=== PATIENT | female | born 1990 | race Caucasian/White ===

== ENCOUNTER 2020-10-08 10:47 | Outpatient (REF) | payer OTHER, SELFPAY | END 2020-10-08 10:48 | disposition home or self-care (01) | LOC: HO.LAB 10:47 | PROVIDERS: PCP Internal Medicine; Visit Provider Internal Medicine | DX: Z20.828 Contact with and (suspected) exposure to other viral communicable diseases (principal) | CPT/HCPCS: C9803; U0003 ==

== ENCOUNTER 2020-12-23 16:46 | Outpatient (REF) | payer OTHER, SELFPAY ==
[2020-12-23 17:41] LABS: Glucose Urine UA NEG (NEG); Leukocyte Esterase Urine TRACE (NEG); Nitrite Urine NEG (NEG); Specific Gravity - Urine >= 1.030 (1.005-1.025); Urine Blood NEG (NEG); Urine Ketones 5 MG/DL (NEG); Urine Protein NEG (NEG-TRACE)
[2020-12-23 17:45] LABS: Appearance Urine CLEAR; Color Urine YELLOW
[2020-12-23 17:55] LABS: Bacteria Urine 1+ /LPF; RBC Urine 0 /HPF (0); Squamous Epithelial Cell Urine 3+ /LPF
== END 2020-12-23 16:47 | disposition home or self-care (01) ==
LOC: HO.LAB 16:46
PROVIDERS: PCP Internal Medicine; Visit Provider Internal Medicine
DX: N39.0 Urinary tract infection, site not specified (principal)
CPT/HCPCS: 81001

== ENCOUNTER 2021-10-16 20:07 | Emergency (ER) | payer OTHER, SELFPAY ==
[2021-10-16 21:26] VITALS: BP 130/88; PULSE 109; RESP 16; TEMP 36.6; O2SAT 97; BMI 32.3
--- NOTE | 2021-10-16 23:48 | ECG_ITS ---
Test Reason : CP Blood Pressure : / mmHG Vent. Rate : 086 BPM Atrial Rate : 086 BPM P-R Int : 120 ms QRS Dur : 090 ms QT Int : 368 ms P-R-T Axes : 060 034 050 degrees QTc Int : 440 ms Normal sinus rhythm Normal ECG When compared with ECG of 09-OCT-2016 21:51, No significant change was found Referred By: Edna Blair Electronically Signed By:CECILIA FOUNTAIN MD
--- NOTE | 2021-10-17 00:06 | PC.NURSE ---
This RN called poison control to report medication overdose. PT reported taking an additional dose of 300 mg Bupropion this evening around 1900 on top of her normal 300 mg dose at 1200. PT reported nausea, lethargy, and confusion. Poison control advised to perform EKG, draw labs for CMP and mag, and monitor for 12 hours. ED provider informed of directives from poison control.
[2021-10-17] MEDS: Ondansetron ODT 4 MG TAB.RAPDIS TRANSLINGU (00:11)
[2021-10-17 00:27] LABS: Basophils Percent Auto 0.3 % (0-2); Eosinophils Absolute Auto 0.2 X10*3/uL (0.0-0.4); Eosinophils Percent Auto 2.5 % (0-4); Hematocrit 42.7 % (37.0-47.0); Hemoglobin 14.7 g/dl (12.0-16.0); Imm Gran Abs Auto 0.01 X10*3/uL (0.00-0.03); Imm Gran Pct Auto 0.2 % (0.0-0.4); Lymphocytes Absolute Auto 1.7 X10*3/uL (1.2-4.9); Lymphocytes Percent Auto 27.9 % (20-40); MANUAL DIFF FLAG NO; Mean Corpuscular HGB Conc 34.4 g/dl (31.0-35.0); Mean Corpuscular Hemoglobin 30.5 pg (27.0-33.0); Mean Corpuscular Volume 88.6 fL (80.0-98.0); Mean Platelet Volume 9.5 fL (9.4-12.3); Monocytes Absolute Auto 0.4 X10*3/uL (0.1-1.2); Monocytes Percent Auto 7.1 % (2-11); Neutrophils Absolute Auto 3.8 x10*3/uL (2.0-8.3); Platelet Count 319 X10*3/uL (160-400); Red Blood Count 4.82 X10*6/uL (4.20-5.50); Red Cell Distribution Width 12.3 % (11.0-16.0); White Blood Count 6.1 X10*3/uL (4.8-10.8)
--- NOTE | 2021-10-17 00:36 | ED.GENADULT ---
HPI - General Adult General Chief complaint: General Medical <Edna Blair NP - Last Filed: 10/17/21 01:20> Stated complaint: thinks she took extra of wellubrutin <Edna Blair NP - Last Filed: 10/17/21 01:20> Time Seen by Provider: 10/16/21 22:48 <Edna Blair NP - Last Filed: 10/17/21 01:20> Source: patient <Edna Blair NP - Last Filed: 10/17/21 01:20> Mode of arrival: ambulatory <Edna Blair NP - Last Filed: 10/17/21 01:20> Limitations: no limitations <Edna Blair NP - Last Filed: 10/17/21 01:20> History of Present Illness HPI narrative: 31-year-old female with a past medical history of anxiety and depression here with reports of taking extra doses of her Wellbutrin accidentally today. Patient normally takes 150 mg of Wellbutrin XL twice a day. At 19:00 she accidentally took an additional 2 doses for a total of 600 mg of Wellbutrin XL today. After this she started to feel nervous. She vomited 3-4 times and felt dizzy. She called poison control and they were referred her into the emergency department. No SI/HI <Edna Blair NP - Last Filed: 10/17/21 01:20> Related Data Home medications: Home Medications Medication Instructions Recorded Confirmed bupropion HCl 150 mg tablet,12 hr 150 mg PO BID 10/12/21 10/12/21 sustained-release prazosin 1 mg capsule 1 mg PO BID 10/12/21 10/12/21 trazodone 50 mg tablet 50 mg PO BEDTIME 10/12/21 10/12/21 Previous Rx's Medication Instructions Recorded sertraline 50 mg tablet (Zoloft) 50 mg PO DAILY #60 tab 05/05/21 clonazepam 0.5 mg tablet 0.5 mg PO TID #90 tab 06/12/21 ibuprofen 400 mg tablet 400 mg PO Q6H #60 tab 06/12/21 naproxen 500 mg tablet 500 mg PO BID #60 tab 06/13/21 carbamide peroxide 6.5 % ear drops 5 drp OTIC (EAR) RIGHT DAILY 4 10/12/21 (Debrox) Days #15 ml clindamycin HCl 300 mg capsule 300 mg PO BID 7 Days #14 cap 10/12/21 <AMANDA Lorenzo Last Filed: 10/17/21 01:20> Allergies/adverse reactions: Allergies Allergy/AdvReac Type Severity Reaction Status Date / Time No Known Allergies Allergy Verified 10/12/21 13:08 <Edna Blair NP - Last Filed: 10/17/21 01:20> Review of Systems Review of Systems: Yes all other systems are reviewed and are negative <AMANDA Lorenzo Last Filed: 10/17/21 01:20> Constitutional: Constitutional: Reports no additional constitutional complaints, Denies body ache(s), Denies chills, Denies fever(s), Denies headache(s) and Denies weakness <AMANDA Lorenzo Last Filed: 10/17/21 01:20> Eyes: Eyes: Reports no additional eye complaints and Denies change in vision <AMANDA Lorenzo Last Filed: 10/17/21 01:20> ENT: Reports system reviewed and no additional complaints, except as documented, Reports dizziness, Denies headache(s), Denies nasal congestion, Denies nasal discharge and Denies neck pain <AMANDA Lorenzo Last Filed: 10/17/21 01:20> Cardiovascular: Cardiovascular: Reports no additional cardiovascular complaints, Denies chest pain, Denies leg edema and Denies dyspnea <AMANDA Lorenzo Last Filed: 10/17/21 01:20> Respiratory: Respiratory: Reports no additional respiratory complaints, Denies cough and Denies dyspnea <AMANDA Lorenzo Last Filed: 10/17/21 01:20> Gastrointestinal: Gastrointestinal: Reports no additional gastrointestinal complaints, Denies abdominal pain, Denies diarrhea, Reports nausea and Reports vomiting <AMANDA Lorenzo Last Filed: 10/17/21 01:20> Genitourinary: Genitourinary: Reports no additional female genitourinary complaints and Denies urinary incontinence <Edna Blair NP - Last Filed: 10/17/21 01:20> Musculoskeletal: Musculoskeletal: Reports no additional musculoskeletal complaints, Denies back pain, Denies arthralgias, Denies joint swelling, Denies neck pain, Denies numbness and Denies tingling <Edna Blair NP - Last Filed: 10/17/21 01:20> Integumentary/Breasts: Skin/Breast: Reports system reviewed and no additional complaints, except as docu and Denies rash <Edna Blair NP - Last Filed: 10/17/21 01:20> Neurologic: Reports system reviewed and no additional complaints, except as documented, Denies Abnormal speech present, Reports dizziness, Denies headache(s), Denies numbness, Denies tingling and Denies weakness <Edna Blair NP - Last Filed: 10/17/21 01:20> PMFSH Past Medical History Attestation statement: The following information was validated with the patient. <Edna Blair NP - Last Filed: 10/17/21 01:20> Source: old records reviewed and nursing notes reviewed <Edna Blair NP - Last Filed: 10/17/21 01:20> Medical History: Medical History Depression Obesity Panic disorder <Edna Blair NP - Last Filed: 10/17/21 01:20> Surgical History: Surgical History History of lumpectomy <Edna Blair NP - Last Filed: 10/17/21 01:20> Family History Family History: Family History Mother No problems noted. Father Cancer <Edna Blair NP - Last Filed: 10/17/21 01:20> Social History Social History: Social History Housing: Apartment Alcohol intake: never Patient Tobacco Use Status: Never used Tobacco e-Cigarette/Vaping Use: Never Used Second Hand Smoke Exposure: No Advance Directives: No Patient : No service: No Current occupational status: employed <Edna Blair NP - Last Filed: 10/17/21 01:20> Physical Exam Vital Signs: Vital Signs: Last Vital Signs Temp 97.9 F 10/16/21 21:26 Pulse 109 H 10/16/21 21:26 Resp 16 10/16/21 21:26 BP 130/88 10/16/21 21:26 Pulse Ox 97 10/16/21 21:26 BMI result Body Mass Index 32.3 <Edna Blair NP - Last Filed: 10/17/21 01:20> Vital Signs: Last Vital Signs Temp 97.9 F 10/16/21 21:26 Pulse 109 H 10/16/21 21:26 Resp 16 10/16/21 21:26 BP 130/88 10/16/21 21:26 Pulse Ox 97 10/16/21 21:26 BMI result Body Mass Index 32.3 <Delbert Stacy MD - Last Filed: 10/17/21 00:45> Const: General: cooperative, healthy appearing, comfortable and no acute distress <Edna Blair NP - Last Filed: 10/17/21 01:20> Orientation/consciousness: patient oriented x3 <Edna Blair NP - Last Filed: 10/17/21 01:20> Limitations: no limitations <Edna Blair NP - Last Filed: 10/17/21 01:20> HENMT: Head: Yes normal to inspection <Edna Blair NP - Last Filed: 10/17/21 01:20> Ears: hearing grossly normal bilaterally <Edna Blair NP - Last Filed: 10/17/21 01:20> General nose exam: Normal external nose present <Edna Blair NP - Last Filed: 10/17/21 01:20> Face and sinus: Yes normal facial exam <Edna Blair NP - Last Filed: 10/17/21 01:20> Mouth: Normal oral and palatal mucosa present <Edna Blair NP - Last Filed: 10/17/21 01:20> Throat: Yes posterior oropharynx normal <Edna Blair NP - Last Filed: 10/17/21 01:20> Eyes: General: appearance normal, both eyes and all related structures <Edna Blair NP - Last Filed: 10/17/21 01:20> Pupils: Equal, round and reactive pupils present <Edna Blair NP - Last Filed: 10/17/21 01:20> Neck: Neck: Yes normal visual inspection <Edna Blair NP - Last Filed: 10/17/21 01:20> Chest: Chest palpation & inspection: normal inspection of the chest <Edna Blair NP - Last Filed: 10/17/21 01:20> Resp: Effort & Inspection: normal respiratory effort <Edna Blair NP - Last Filed: 10/17/21 01:20> Auscultation: clear to auscultation bilaterally <Edna Blair NP - Last Filed: 10/17/21 01:20> Cardio: Rate: regular rate <Edna Blair NP - Last Filed: 10/17/21 01:20> Rhythm: regular rhythm <Edna Blair NP - Last Filed: 10/17/21 01:20> Peripheral pulses: Peripheral pulses 2+ throughout <Edna Blair NP - Last Filed: 10/17/21 01:20> GI: Inspection: Yes normal to inspection <Edna Blair NP - Last Filed: 10/17/21 01:20> Palpation (GI): Soft to palpation and nontender <Edna Blair NP - Last Filed: 10/17/21 01:20> Auscultation: normal bowel sounds <Edna Blair NP - Last Filed: 10/17/21 01:20> Back/Spine/Pelvis: Thoracic/Lumbar Spine: thoracic and lumbar spine normal to inspection <Edna Blair NP - Last Filed: 10/17/21 01:20> Skin: General skin exam: no rashes or lesions noted <Edna Blair NP - Last Filed: 10/17/21 01:20> Neuro: General: patient oriented x3, no focal motor deficits and normal sensation to monofilament <Edna Blair NP - Last Filed: 10/17/21 01:20> Cranial nerves: Yes CN's II-XII intact bilaterally, Yes Equal, round and reactive pupils present, Yes Bilaterally intact EOM present, Yes Nystagmus not present, Yes Normal facial strength present and Yes Midline tongue present <Edna Blair NP - Last Filed: 10/17/21 01:20> Cognition (Neuro): normal cognition <Edna Blair NP - Last Filed: 10/17/21 01:20> Speech: No Abnormal speech present <Edna Blair NP - Last Filed: 10/17/21 01:20> Gait exam (Neuro): Normal gait present <Edna Blair NP - Last Filed: 10/17/21 01:20> Motor exam (neuro): 5/5 motor strength present throughout <Edna Blair NP - Last Filed: 10/17/21 01:20> Sensory Exam: Normal double simultaneous stimulation for sensation <Edna Blair NP - Last Filed: 10/17/21 01:20> Extrem: General: Yes normal to inspection <Edna Blair NP - Last Filed: 10/17/21 01:20> Course Course Course Narrative: 31-year-old female here after accidentally taking 300 mg extra of Wellbutrin XL today. Her total dose of Wellbutrin today was 600 mg of XL. She is complaining of feeling nauseous with several episodes of vomiting and some dizziness. Her heart rate is 105. Her blood pressure is normotensive. She was referred in by poison Control. 0040-spoke to poison Control. They recommended obtaining labs including magnesium and an EKG. 0115-Spoke to poison control. They want patient observed till 12pm on 10/17 in the ED. They would like Q4 hr EKG. No need for repeat labs as initial labs are unremarkable with normal potassium and magnesium. Monitor for altered mental status, hypertension, tachycardia, agitation or serotonin syndrome symptoms. 0200-Sign out to Dr Flores pending observation. <Edna Blair NP - Last Filed: 10/17/21 01:20> Medical Decision Making Medical Records Medical records reviewed: Yes I reviewed the patient's medical records. <Edna Blair NP - Last Filed: 10/17/21 01:20> Lab Data Lab results reviewed: Yes I reviewed the patient's lab results. <Edna Blair NP - Last Filed: 10/17/21 01:20> Result diagrams: : 10/17/21 00:18 10/17/21 00:18 <Edna Blair NP - Last Filed: 10/17/21 01:20> Labs: Lab Results 10/17/21 10/17/21 Range/Units 00:18 00:18 WBC 6.1 (4.8-10.8) X10*3/uL RBC 4.82 (4.20-5.50) X10*6/uL Hgb 14.7 (12.0-16.0) g/dl Hct 42.7 (37.0-47.0) % MCV 88.6 (80.0-98.0) fL MCH 30.5 (27.0-33.0) pg MCHC 34.4 (31.0-35.0) g/dl RDW 12.3 (11.0-16.0) % Plt Count 319 (160-400) X10*3/uL MPV 9.5 (9.4-12.3) fL Immature Gran % (Auto) 0.2 (0.0-0.4) % Neut % (Auto) 62.0 (45-73) % Lymph % (Auto) 27.9 (20-40) % [place] % (Auto) 7.1 (2-11) % Eos % (Auto) 2.5 (0-4) % Baso % (Auto) 0.3 (0-2) % Lymph # (Auto) 1.7 (1.2-4.9) X10*3/uL [place] # (Auto) 0.4 (0.1-1.2) X10*3/uL Eos # (Auto) 0.2 (0.0-0.4) X10*3/uL Baso # (Auto) 0.0 (0.0-0.2) X10*3/uL Abs Immat Gran (auto) 0.01 (0.00-0.03) X10*3/uL Absolute Neuts (auto) 3.8 (2.0-8.3) x10*3/uL Absolute Nucleated RBC 0.000 (0.0-0.012) X10*3/uL Nucleated RBC % (auto) 0.0 (0.0-0.2) /100WBC Sodium 140 (135-145) mmol/L Potassium 3.9 (3.3-5.1) mmol/L Chloride 105 (96-108) mmol/L Carbon Dioxide 27 (22-29) mmol/L Anion Gap 12 (12-20) BUN 10 (9-16) mg/dL Creatinine 0.87 (0.5-1.4) mg/dL Estim Creat Clear Calc 92.7 Estimated GFR > 60 Random Glucose 114 (60-115) mg/dL Calcium 10.0 (8.4-10.2) mg/dL Magnesium 2.3 (1.6-2.6) mg/dL Total Bilirubin 0.6 (0.0-1.0) mg/dL Direct Bilirubin 0.2 (0.0-0.5) mg/dL AST 13 (5-31) U/L ALT 15 (0-31) U/L Alkaline Phosphatase 84 (39-117) U/L Total Protein 7.9 (6.5-8.0) g/dL Albumin 4.5 (3.5-5.0) g/dL <Edna Blair NP - Last Filed: 10/17/21 01:20> Lab Results 10/17/21 10/17/21 Range/Units 00:18 00:18 WBC 6.1 (4.8-10.8) X10*3/uL RBC 4.82 (4.20-5.50) X10*6/uL Hgb 14.7 (12.0-16.0) g/dl Hct 42.7 (37.0-47.0) % MCV 88.6 (80.0-98.0) fL MCH 30.5 (27.0-33.0) pg MCHC 34.4 (31.0-35.0) g/dl RDW 12.3 (11.0-16.0) % Plt Count 319 (160-400) X10*3/uL MPV 9.5 (9.4-12.3) fL Immature Gran % (Auto) 0.2 (0.0-0.4) % Neut % (Auto) 62.0 (45-73) % Lymph % (Auto) 27.9 (20-40) % [place] % (Auto) 7.1 (2-11) % Eos % (Auto) 2.5 (0-4) % Baso % (Auto) 0.3 (0-2) % Lymph # (Auto) 1.7 (1.2-4.9) X10*3/uL [place] # (Auto) 0.4 (0.1-1.2) X10*3/uL Eos # (Auto) 0.2 (0.0-0.4) X10*3/uL Baso # (Auto) 0.0 (0.0-0.2) X10*3/uL Abs Immat Gran (auto) 0.01 (0.00-0.03) X10*3/uL Absolute Neuts (auto) 3.8 (2.0-8.3) x10*3/uL Absolute Nucleated RBC 0.000 (0.0-0.012) X10*3/uL Nucleated RBC % (auto) 0.0 (0.0-0.2) /100WBC Sodium 140 (135-145) mmol/L Potassium 3.9 (3.3-5.1) mmol/L Chloride 105 (96-108) mmol/L Carbon Dioxide 27 (22-29) mmol/L Anion Gap 12 (12-20) BUN 10 (9-16) mg/dL Creatinine 0.87 (0.5-1.4) mg/dL Estim Creat Clear Calc 92.7 Estimated GFR > 60 Random Glucose 114 (60-115) mg/dL Calcium 10.0 (8.4-10.2) mg/dL Magnesium 2.3 (1.6-2.6) mg/dL Total Bilirubin 0.6 (0.0-1.0) mg/dL Direct Bilirubin 0.2 (0.0-0.5) mg/dL AST 13 (5-31) U/L ALT 15 (0-31) U/L Alkaline Phosphatase 84 (39-117) U/L Total Protein 7.9 (6.5-8.0) g/dL Albumin 4.5 (3.5-5.0) g/dL <Delbert Stacy MD - Last Filed: 10/17/21 00:45> ECG Data Attestation: I personally reviewed and interpreted this ECG as follows: <Edna Blair NP - Last Filed: 10/17/21 01:20> Interpretation: 10/17 0003 Normal sinus rhythm with a rate 86, normal NC, normal QRS QTC 440 <Edna Blair NP - Last Filed: 10/17/21 01:20> Discharge Plan Discharge Clinical Impression: Accidental drug ingestion <Edna Blair NP - Last Filed: 10/17/21 01:20> Patient Disposition: Still a Patient <Edna Blair NP - Last Filed: 10/17/21 01:20> Prescriptions: No Action naproxen 500 mg tablet 500 mg PO BID Qty: 60 RF: 8 sertraline [Zoloft] 50 mg tablet 50 mg PO DAILY Qty: 60 RF: 3 ibuprofen 400 mg tablet 400 mg PO Q6H Qty: 60 RF: 5 clonazepam 0.5 mg tablet 0.5 mg PO TID Qty: 90 RF: 5 bupropion HCl 150 mg tablet sustained-release 12 hr 150 mg PO BID RF: 0 trazodone 50 mg tablet 50 mg PO BEDTIME RF: 0 prazosin 1 mg capsule 1 mg PO BID RF: 0 carbamide peroxide [Debrox] 6.5 % drops 5 drp otic (ear) right DAILY 4 Days Qty: 15 RF: 0 clindamycin HCl 300 mg capsule 300 mg PO BID 7 Days Qty: 14 RF: 0 <Edna Blair NP - Last Filed: 10/17/21 01:20>
[2021-10-17 00:48] LABS: Alanine Aminotransferase 15 U/L (0-31); Albumin Level 4.5 g/dL (3.5-5.0); Alkaline Phosphatase 84 U/L (39-117); Anion Gap 12 (12-20); Aspartate Amino Transferase 13 U/L (5-31); Bilirubin Direct 0.2 mg/dL (0.0-0.5); Bilirubin Total 0.6 mg/dL (0.0-1.0); Blood Urea Nitrogen 10 mg/dL (9-16); Carbon Dioxide 27 mmol/L (22-29); Chloride 105 mmol/L (96-108); Creatinine Clr Calc Pharmacy 92.7; Estimated Glomerular Filt Rate > 60; Glucose Random 114 mg/dL (60-115); Magnesium 2.3 mg/dL (1.6-2.6); Potassium 3.9 mmol/L (3.3-5.1); Sodium 140 mmol/L (135-145); Total Protein 7.9 g/dL (6.5-8.0)
[2021-10-17 04:18] VITALS: BP 105/56; PULSE 93; RESP 15; TEMP 36.6; O2SAT 99
[2021-10-17 06:07] VITALS: BP 109/68; PULSE 91; RESP 16; O2SAT 100
[2021-10-17 08:11] VITALS: BP 119/66; PULSE 93; RESP 16; O2SAT 100
[2021-10-17 14:00] VITALS: BP 104/69; PULSE 106; RESP 15; TEMP 36.8; O2SAT 98
--- NOTE | 2021-10-17 14:00 | ECG_ITS ---
Test Reason : cp Blood Pressure : / mmHG Vent. Rate : 081 BPM Atrial Rate : 081 BPM P-R Int : 126 ms QRS Dur : 090 ms QT Int : 372 ms P-R-T Axes : 048 032 039 degrees QTc Int : 432 ms Normal sinus rhythm Normal ECG When compared with ECG of 17-OCT-2021 00:03, No significant change was found Referred By: Viviana Conner Electronically Signed By:CECILIA FOUNTAIN MD
== END 2021-10-17 14:32 | disposition home or self-care (01) ==
PROVIDERS: Nurse Practitioner Family; Emergency Provider Internal Medicine; PCP Internal Medicine
DX: T43.291A Poisoning by other antidepressants, accidental (unintentional), initial encounter (principal); R42 Dizziness and giddiness; F41.9 Anxiety disorder, unspecified; Y92.9 Unspecified place or not applicable; Z79.899 Other long term (current) drug therapy
CPT/HCPCS: 36415; 80048; 80076; 83735; 85025; 93005; 99283; 99284

== ENCOUNTER 2021-12-04 00:14 | Emergency (ER) | payer OTHER, SELFPAY ==
[2021-12-04 02:02] VITALS: BP 119/64; PULSE 100; RESP 18; TEMP 36.8; O2SAT 99; BMI 31.1
[2021-12-04 04:50] VITALS: BP 122/69; PULSE 100; RESP 16; O2SAT 99
--- NOTE | 2021-12-04 11:04 | ECG_ITS ---
Test Reason : CHEST PAIN Blood Pressure : / mmHG Vent. Rate : 089 BPM Atrial Rate : 089 BPM P-R Int : 124 ms QRS Dur : 092 ms QT Int : 352 ms P-R-T Axes : 059 033 056 degrees QTc Int : 428 ms Normal sinus rhythm Normal ECG When compared with ECG of 17-OCT-2021 14:04, No significant change was found Referred By: Paulie Arora Electronically Signed By:KAREEN DELUCA
== END 2021-12-04 05:51 | disposition left against medical advice (07) ==
PROVIDERS: Emergency Provider Emergency Medicine; PCP Internal Medicine
DX: R07.89 Other chest pain (principal); M54.50 Low back pain, unspecified
CPT/HCPCS: 93005; 99283

== ENCOUNTER 2022-01-10 11:57 | Outpatient (REF) | payer OTHER, SELFPAY ==
[2022-01-10 14:01] LABS: Thyroid Stimulating Hormone 0.52 uIU/mL (0.32-4.0)
== END 2022-01-10 11:58 | disposition home or self-care (01) ==
LOC: HO.10HDL 11:57
PROVIDERS: Visit Provider Internal Medicine
DX: Z00.00 Encounter for general adult medical examination without abnormal findings (principal)
CPT/HCPCS: 36415; 84443

== ENCOUNTER 2022-10-23 16:35 | Outpatient (REF) | payer OTHER, SELFPAY ==
[2022-10-23 17:31] LABS: Influenza A PCR NEGATIVE (Negative); Influenza B PCR NEGATIVE (Negative); Resp Syncy Virus RNA Qual PCR NEGATIVE (Negative); SARS COV2 PCR INHOUSE NEGATIVE (Negative)
== END 2022-10-23 16:36 | disposition home or self-care (01) ==
LOC: HO.LNP 16:35
PROVIDERS: Visit Provider Internal Medicine
DX: Z20.822 Contact with and (suspected) exposure to COVID-19 (principal); J06.9 Acute upper respiratory infection, unspecified
CPT/HCPCS: 0241U

== ENCOUNTER 2023-03-13 11:37 | Outpatient (REF) | payer OTHER, SELFPAY ==
[2023-03-13 13:43] LABS: Cholesterol 179 mg/dL; HDL Cholesterol 40 mg/dL; LDL Cholesterol Calculated 117 mg/dl; Triglycerides 110 mg/dL
[2023-03-13 13:48] LABS: HBS Num1 24.41 mIU/mL (0-7.99); ~Hepatitis B Surface Antibody REACTIVE (Nonreactive)
[2023-03-13 13:49] LABS: Thyroid Stimulating Hormone 0.86 uIU/mL (0.32-4.0)
[2023-03-15 17:49] LABS: Mumps Virus IgG Antibody <9.00 AU/mL; Rubella IgG Antibody 1.13 Index; Rubeola IgG (Measles) <13.50 AU/mL
[2023-03-16 01:59] LABS: TS Negative Control Passed; TS Panel A 0; TS Panel B 0; TS Positive Control Passed; TSpotTB Negative (Negative)
== END 2023-03-13 11:38 | disposition home or self-care (01) ==
LOC: HO.10HDL 11:37
PROVIDERS: Visit Provider Internal Medicine
DX: Z00.00 Encounter for general adult medical examination without abnormal findings (principal); E03.9 Hypothyroidism, unspecified; Z28.39 Other underimmunization status; Z20.1 Contact with and (suspected) exposure to tuberculosis
CPT/HCPCS: 36415; 80061; 84443; 86481; 86706; 86735; 86762; 86765; 86787

== ENCOUNTER 2023-09-13 09:05 | Outpatient (AMB) | payer OTHER, SELFPAY ==
[2023-09-13 10:16] VITALS: BP 114/72; PULSE 76; TEMP 36; O2SAT 96; BMI 36.6
--- NOTE | 2023-09-13 10:16 | MHC.OFFWIV ---
Intake Vital Signs 09/13/23 10:16 Height 5 ft 2 in Weight 200 lb BMI 36.6 BP 114/72 Blood Pressure Location Rt brachial Position Sitting Pulse 76 Pulse Source Pulse Oximeter Temp 96.8 F Temp Source Temporal Artery Scan Pulse Oximetry (%) 96 Oxygen Delivery Method Room Air Intake Visit Reasons: EST/congestion/[phone] Intake Note: Pt is here c/o congestion for 3 days. Pt states her chest hurts went she coughs the most. Patient Tobacco Use Status: Never used Tobacco Allergies No Known Allergies Allergy (Verified 09/13/23 10:16) Do you need a note to return to daycare/school/sports/work: No HPI HPI Comments History of Present Illness Details This is a 33-year-old female who presents to the office today for sick visit. Patient complaining of bilateral lower rib pain x1 day in the setting of nasal/sinus congestion, rhinorrhea, and mild headache x2 days. Patient states she started to develop viral URI symptoms about 2 days ago. She then started to develop bilateral lower rib pain yesterday. She states this pain is brought on with coughing, sneezing, laughing, and lying flat. She denies any recent travel, recent surgeries, recent immobilization. She denies any hormone treatment. She denies any personal or family history of clotting disorders or VTE. She denies any sputum production but she does have a dry cough. She denies any lower extremity edema. She denies any shortness of breath. She denies any trauma / injury to the chest. [facility] Medical History Depression Obesity Panic disorder Surgical History History of lumpectomy Family History Mother No problems noted. Father Cancer Social History Housing: Apartment Alcohol intake: never Patient Tobacco Use Status: Never used Tobacco e-Cigarette/Vaping Use: Never Used Second Hand Smoke Exposure: No service: No Current occupational status: employed Cognitive needs: No Hearing needs: No Vision needs: Yes Review of Systems Const All systems reviewed & are unremarkable except as noted in HPI and below Reports no additional complaints Eyes Reports no additional complaints ENT Reports no additional complaints Card Reports no additional complaints Resp Reports no additional complaints GI Reports no additional complaints Reports no additional complaints Musc Reports no additional complaints Skin/Breast Reports system reviewed and no additional complaints, except as documented Neuro Reports no additional complaints Psych Reports no additional complaints Endo Reports no additional complaints Cuong/Lymph Reports no additional complaints Aller/Immun Reports no additional complaints Physical Exam Vital Signs: Last Vital Signs Temp 96.8 F 09/13/23 10:16 Pulse 76 09/13/23 10:16 BP 114/72 09/13/23 10:16 Pulse Ox 96 09/13/23 10:16 Oxygen Delivery Method Room Air 09/13/23 10:16 BMI result Body Mass Index 36.6 Const Other: Vital signs reviewed. Constitutional: Non-toxic appearing. No acute distress. Well-developed and well-nourished. HEENT: Normocephalic and atraumatic. Tympanic membranes without erythema, edema, or bulging bilaterally. External auditory canals without erythema or edema bilaterally. Moist mucous membranes. No pharyngeal erythema or exudates. Skin: Warm and dry. No rashes or lesions noted. Neck: Full and painless range of motion. No cervical lymphadenopathy. Cardio: Regular rate and rhythm. No murmurs, gallops, or rubs. No lower extremity edema. No JVD. Patient has tenderness to palpation of bilateral lower ribs laterally and anteriorly. Pulmonary: No respiratory distress. No accessory muscle usage. Clear to auscultation bilaterally without wheezing, crackles, or rhonchi. Gastrointestinal: Soft, nontender, and nondistended in all 4 quadrants. Normoactive bowel sounds in all 4 quadrants. Genitourinary: No CVA tenderness. Musculoskeletal: Normal range of motion in joints throughout the body. No deformity or other signs of injury. Neuro: Alert and oriented x4. Cranial nerves 2-12 grossly intact. No focal deficits appreciated. Psych: Normal mood and affect. Assessment & Plan Assessment & Plan (1) Pleuritic pain: Code(s): R07.81 - Pleurodynia Plan This is a 33-year-old female who presents to the office complaining of bilateral lower rib pain x1 day in the setting of viral URI symptoms times 2 days. Differential diagnosis includes pleuritis versus pneumonia versus pneumothorax versus pleural effusion versus costochondritis versus acute asthma exacerbation versus intercostal strain/sprain. Patient is able to be PERC rule out so very low suspicion for PE at this time; additionally, patient denies any recent travel, recent surgeries, or recent immobilization. Patient's symptoms are not concerning for acute coronary syndrome whatsoever given no risk factors and her pain is atypical in nautre, reproducible, and non-exertinal. Her lungs are clear to auscultation bilaterally and patient has no shortness of breath or respiratory distress. Her vital signs are stable and she is maintaining oxygen saturations on room air. Check chest x-ray to further evaluate for diagnoses listed above. Patient sent home on p.o. prednisone 40 mg daily x5 days to treat possible acute asthma exacerbation. If chest x-ray is negative, patient very likely has costochondritis versus acute intercostal sprain / strain in the setting of coughing. Patient was advised to proceed directly to the emergency room if she were to develop worsening shortness of breath or worsening chest pain. Patient verbalized understanding and is agreeable with the plan. Orders: Orders XR chest 2V Today R07.81 - Pleurodynia Medications: New prednisone 40 mg (2 x 20 mg) PO DAILY 10 tabs 0RF Coding Level of Care Code Est Pt Level 3 (22646) Diagnoses Pleuritic pain R07.81
== END 2023-09-13 10:56 | disposition home or self-care (01) ==
PROVIDERS: PCP Internal Medicine; Visit Provider Physician Assistant Medical
DX: R07.81 Pleurodynia (principal)
CPT/HCPCS: 99213

== ENCOUNTER 2023-09-13 10:48 | Outpatient (REF) | payer OTHER, SELFPAY ==
--- NOTE | ~2023-09-13 | XR_ITS ---
EXAMINATION: XR CHEST CLINICAL INFORMATION: Pleurodynia COMPARISON: 10/28/2018 TECHNIQUE: 2 views of the chest were obtained. FINDINGS: No significant abnormality is noted involving the heart, lungs, mediastinum, bony thorax or soft tissues. XR/XR chest 2V IMPRESSION: Unremarkable examination, without interval change.
== END 2023-09-13 10:49 | disposition home or self-care (01) ==
LOC: HO.HMGCX 10:48
PROVIDERS: PCP Internal Medicine; Visit Provider Physician Assistant Medical
DX: R07.81 Pleurodynia (principal)
CPT/HCPCS: 71046

== ENCOUNTER 2024-01-28 15:07 | Outpatient (AMB) | payer OTHER, SELFPAY ==
[2024-01-28 15:09] VITALS: BP 120/74; PULSE 80; TEMP 36.6; O2SAT 98; BMI 36.6
--- NOTE | 2024-01-28 15:09 | AM.OFFWIN_ITS ---
Intake Vital Signs 01/28/24 15:09 Height 5 ft 2 in Weight 200 lb BMI 36.6 BP 120/74 Blood Pressure Location Lt brachial Position Sitting Pulse 80 Pulse Source Pulse Oximeter Temp 97.9 F Temp Source Oral Pulse Oximetry (%) 98 Intake Visit Reasons: EP Stiffness, muscle spasms Intake Note: pt is here for c/o stiffness and muscle spasms back/neck pt states she feels like its everywhere after having a panic attack. her therapist adviesd her to come to get blood work for possible interactions with medications. Patient Tobacco Use Status: Never used Tobacco Allergies No Known Allergies Allergy (Verified 01/28/24 15:38) Medication List - Last Reconciled 01/28/24 by Rivera Israel MD albuterol sulfate 90 mcg/actuation 1 inh inhalation QID PRN bupropion HCl XL 150 mg PO QAM clonazepam 0.5 mg PO TID cyclobenzaprine 10 mg PO BEDTIME dextroamphetamine-amphetamine 12.5 mg 1 tab PO DAILY duloxetine 60 mg PO DAILY hydroxyzine HCl 25 - 50 mg PO BID PRN naproxen (Naprosyn) 500 mg PO BID PRN prazosin 1 mg PO BID trazodone 50 mg PO BEDTIME Do you need a note to return to daycare/school/sports/work: No HPI EP Stiffness, muscle spasms HPI Details 33 yr old female presents to the office for a sick visit. Patient reports she had a panic attack yesterday. Subsequently she feels that her muscles in the back and neck are tense. Currently she is not working. She would like to get blood work done as she gained a lot of weight. Unable to connect with her PCP. [facility] Medical History Depression Obesity Panic disorder Surgical History History of lumpectomy Family History Mother No problems noted. Father Cancer Social History Housing: Apartment Alcohol intake: never Patient Tobacco Use Status: Never used Tobacco e-Cigarette/Vaping Use: Never Used Second Hand Smoke Exposure: No service: No Current occupational status: employed Cognitive needs: No Hearing needs: No Vision needs: Yes Physical Exam Vital Signs: Last Vital Signs Temp 97.9 F 01/28/24 15:09 Pulse 80 01/28/24 15:09 BP 120/74 01/28/24 15:09 Pulse Ox 98 01/28/24 15:09 BMI result Body Mass Index 36.6 Const General: cooperative and healthy appearing Nutritional Appearance: well nourished Orientation/consciousness: patient oriented x3 Limitations: no limitations HEENT Head: Yes normal to inspection Eyes General: appearance normal, both eyes and all related structures Neck Neck: Yes normal visual inspection Chest Chest palpation & inspection: normal palpation of entire chest wall Resp Effort & Inspection: normal respiratory effort Neuro General: patient oriented x3 Assessment & Plan Assessment & Plan (1) Panic disorder: Code(s): F41.0 - Panic disorder [episodic paroxysmal anxiety] Plan: Cyclobenzaprine added to the regiman. BW ordered. Will call with results. Orders: Orders Basic Metabolic Panel Today F41.0 - Panic disorder [episodic paroxysmal anxiety] Complete Blood Count no Diff Today F41.0 - Panic disorder [episodic paroxysmal anxiety] Thyroid Stimulating Hormone Today F41.0 - Panic disorder [episodic paroxysmal anxiety] Liver Panel Today F41.0 - Panic disorder [episodic paroxysmal anxiety] Medications: New cyclobenzaprine 10 mg PO BEDTIME 14 tabs 0RF Coding Level of Care Code Est Pt Level 3 (51660) Diagnoses Panic disorder F41.0
== END 2024-01-28 15:47 | disposition home or self-care (01) ==
PROVIDERS: PCP Internal Medicine; Visit Provider Internal Medicine
DX: F41.0 Panic disorder [episodic paroxysmal anxiety] (principal)
CPT/HCPCS: 99213

== ENCOUNTER 2024-06-13 09:07 | Outpatient (AMB) | payer OTHER, MEDICAID, SELFPAY ==
--- NOTE | 2024-06-13 09:19 | AM.OFFWIN_ITS ---
Intake Vital Signs 06/13/24 09:21 Height 5 ft 2 in Weight 199 lb BMI 36.4 BP 120/70 Blood Pressure Location Lt brachial Position Sitting Pulse 124 H Pulse Source Pulse Oximeter Temp 99.7 F Temp Source Oral Pulse Oximetry (%) 98 Intake Visit Reasons: EP Sore throat, body aches Intake Note: Patient is here with sore throat, body aches, and chills, cold, and hot. Patient Tobacco Use Status: Never used Tobacco Allergies No Known Allergies Allergy (Verified 06/13/24 09:22) Do you need a note to return to daycare/school/sports/work: No HPI EP Sore throat, body aches 2 HPI Details Patient started feeling sick last night/early this morning With chills and feverishness as well as body aches and sore throat. Significant nasal congestion and rhinitis but minimal cough until later today. Now has dry cough as well. No known sick contacts Has not tried anything for this. Strep test is negative in office today [facility] Medical History Depression Obesity Panic disorder Surgical History History of lumpectomy Family History Mother No problems noted. Father Cancer Social History Housing: Apartment Alcohol intake: never Patient Tobacco Use Status: Never used Tobacco e-Cigarette/Vaping Use: Never Used Second Hand Smoke Exposure: No service: No Current occupational status: employed Cognitive needs: No Hearing needs: No Vision needs: Yes Review of Systems Const Details: See HPI Physical Exam Vital Signs: Last Vital Signs Temp 99.7 F 06/13/24 09:21 Pulse 124 H 06/13/24 09:21 BP 120/70 06/13/24 09:21 Pulse Ox 98 06/13/24 09:21 BMI result Body Mass Index 36.4 Const General: no acute distress and well developed Nutritional Appearance: well nourished Orientation/consciousness: patient oriented x3 HEENT Other: Significant rhinitis Mild erythema in posterior nasopharynx without exudate Head: Yes normocephalic and Yes atraumatic Eyes General: appearance normal, both eyes and all related structures Pupils: Equal, round and reactive pupils present EOM: EOMs intact bilaterally Resp Effort & Inspection: normal respiratory effort Auscultation: clear to auscultation bilaterally Cardio Rate: regular rate Rhythm: regular rhythm Heart sounds: S1 normal heart sound present, S2 normal heart sound present, no gallops, no murmurs and no rubs Neuro General: patient oriented x3 and gait normal Cranial nerves: Yes Equal, round and reactive pupils present Psych Affect: normal affect Results AMB Rapid Strep AMB Rapid Strep Negative Last Edit by Clarisa Buckley CMA on 06/13/24 09:38 Assessment & Plan Assessment & Plan (1) Viral illness: Code(s): B34.9 - Viral infection, unspecified Plan Viral illness There is no antibiotic medication for viruses. They must run their course. Most average 5-7 days but 7-10 days is not uncommon and up to 14 days is still possible. A cough is often the last symptom to resolve and this can last for weeks in some cases. Rest Hydrate well - Drink plenty of fluids. Especially water. Tylenol or ibuprofen for muscle aches, headache, fever/discomfort Can use [id number] medications for cough such as Delsym or DayQuil. Prescription cough medicines have been shown to be no better. Will check COVID/flu/RSV nasal swab and sent to lab. If positive for COVID, could start Paxil [place]. Her father is currently in the ICU and she should quarantine away from him. If positive for flu clear to consider Tamiflu and again should quarantine away from her father. Call or return to office if worsening Orders: Orders AMB Rapid Strep Screen Today J02.9 - Acute pharyngitis, unspecified Coding Level of Care Code Est Pt Level 3 (84327) Diagnoses Viral illness B34.9
[2024-06-13 09:21] VITALS: BP 120/70; PULSE 124; TEMP 37.6; O2SAT 98; BMI 36.4
== END 2024-06-13 10:00 | disposition home or self-care (01) ==
PROVIDERS: PCP Internal Medicine; Visit Provider Family Medicine
DX: B34.9 Viral infection, unspecified (principal); J02.9 Acute pharyngitis, unspecified
CPT/HCPCS: 87880; 99051; 99213

== ENCOUNTER 2024-06-13 11:24 | Outpatient (REF) | payer OTHER, MEDICAID, SELFPAY ==
[2024-06-13 12:09] LABS: Influenza A PCR NEGATIVE (Negative); Influenza B PCR NEGATIVE (Negative); Resp Syncy Virus RNA Qual PCR NEGATIVE (Negative); SARS COV2 PCR INHOUSE NEGATIVE (Negative)
== END 2024-06-13 11:25 | disposition home or self-care (01) ==
LOC: HO.HMGCLNP 11:24
PROVIDERS: Visit Provider Family Medicine
DX: R09.89 Other specified symptoms and signs involving the circulatory and respiratory systems (principal)
CPT/HCPCS: 0241U

== ENCOUNTER 2024-06-26 10:47 | Outpatient (AMB) | payer OTHER, MEDICAID, SELFPAY ==
[2024-06-26 10:48] VITALS: BP 124/82; PULSE 88; TEMP 36.8; O2SAT 98; BMI 35.8
--- NOTE | 2024-06-26 10:48 | MHC.OFFWIV ---
Intake Vital Signs 06/26/24 10:48 Height 5 ft 2 in Weight 196 lb BMI 35.8 BP 124/82 Blood Pressure Location Lt brachial Position Sitting Pulse 88 Pulse Source Pulse Oximeter Temp 98.3 F Temp Source Oral Pulse Oximetry (%) 98 Oxygen Delivery Method Room Air Intake Visit Reasons: EP-Ears pain Intake Note: pt c/o bilateral ear pain. Started a couple days ago, intermittent Patient Tobacco Use Status: Never used Tobacco Allergies No Known Allergies Allergy (Verified 06/26/24 10:50) Do you need a note to return to daycare/school/sports/work: No HPI EP-Ears pain HPI Details This is a 34-year-old female patient who presents to the walk-in clinic today with a 2-3 day history of bilateral ear pain, right greater than left. States that she does have a history of ear infections, and this feels similar. She typically tries to treat conservatively at home, however pain worsened significantly last night, and she was unable to sleep. Has taken some naproxen with mild relief. Denies any fever or chills. Denies any other upper respiratory symptoms. [facility] Medical History Obesity Panic disorder Depression Surgical History History of lumpectomy Family History Mother No problems noted. Father Cancer Social History Housing: Apartment Alcohol intake: never Patient Tobacco Use Status: Never used Tobacco e-Cigarette/Vaping Use: Never Used Second Hand Smoke Exposure: No service: No Current occupational status: employed Cognitive needs: No Hearing needs: No Vision needs: Yes Review of Systems Const All systems reviewed & are unremarkable except as noted in HPI and below Physical Exam Vital Signs: Last Vital Signs Temp 98.3 F 06/26/24 10:48 Pulse 88 06/26/24 10:48 BP 124/82 06/26/24 10:48 Pulse Ox 98 06/26/24 10:48 Oxygen Delivery Method Room Air 06/26/24 10:48 BMI result Body Mass Index 35.8 Const General: cooperative, healthy appearing and no acute distress HEENT Head: Yes normal to inspection Ears: hearing grossly normal bilaterally, external ears normal and TM abnormal (erythema, purulent effusion b/l R worse than L) General nose exam: Normal external nose present Face and sinus: Yes normal facial exam Mouth: Normal oral and palatal mucosa present Throat: Yes posterior oropharynx normal Neck Neck: Yes no lymphadenopathy Resp Effort & Inspection: normal respiratory effort Auscultation: clear to auscultation bilaterally Cardio Rate: regular rate Rhythm: regular rhythm Skin General skin exam: no rashes or lesions noted Extrem General: Yes capillary refill normal and Yes no clubbing, cyanosis or edema Psych Appearance: grossly normal Mental Status: mental status grossly normal Speech and movement: Normal speech and movement present Assessment & Plan Assessment & Plan (1) Bilateral otitis media with effusion: Code(s): H65.93 - Unspecified nonsuppurative otitis media, bilateral Plan: Patient has done well in previous years for OM with Augmentin. Will start her on this b.i.d. times 10 days given bilateral OM. Reviewed indications, use, possible side effects of medication. She can continue to use naproxen or Tylenol as needed for symptom management. She is requesting Naproxen refill, which I will send. If she does not improve with treatment, or symptoms worsen/do symptoms develop, she can return to the clinic for further evaluation. She verbalizes understanding and agrees to plan. Medications: New amoxicillin-pot clavulanate 875-125 mg Take one tablet by mouth twice a day for 10 days. 1 tab PO BID 10 days 20 tabs 0RF H65.93 - Unspecified nonsuppurative otitis media, bilateral Refilled naproxen (Naprosyn) 500 mg PO BID PRN 60 tabs 0RF pain Coding Level of Care Code Est Pt Level 4 (50820) Diagnoses Bilateral otitis media with effusion H65.93
== END 2024-06-26 11:07 | disposition home or self-care (01) ==
PROVIDERS: PCP Internal Medicine; Visit Provider Nurse Practitioner Family
DX: H65.93 Unspecified nonsuppurative otitis media, bilateral (principal)
CPT/HCPCS: 99214

== ENCOUNTER 2024-07-14 09:01 | Outpatient (AMB) | payer OTHER, MEDICAID, SELFPAY ==
[2024-07-14 09:02] VITALS: BP 120/62; PULSE 94; TEMP 36.3; O2SAT 99; BMI 35.1
--- NOTE | 2024-07-14 09:02 | AM.OFFWIN_ITS ---
Intake Vital Signs 07/14/24 09:02 Height 5 ft 2 in Weight 192 lb BMI 35.1 BP 120/62 Blood Pressure Location Lt brachial Position Sitting Pulse 94 Pulse Source Pulse Oximeter Temp 97.3 F Temp Source Temporal Artery Scan Pulse Oximetry (%) 99 Oxygen Delivery Method Room Air Intake Visit Reasons: EP-rt ear pain, sore throat Intake Note: Pt presents to the office today for c/o right sided ear pain and a sore throat. Pt states she was seen at the walk in on 06/26/24 for an ear infection. Pt states she finished the antibiotics but she states she is still having pain in her right ear that is keeping her up at night. Patient Tobacco Use Status: Never used Tobacco Allergies No Known Allergies Allergy (Verified 07/14/24 09:05) HPI HPI Comments History of Present Illness Details 34 y/o female patient who presents to [facility] walk in clinic with c/o right sided ear pain and a sore throat. Pt states she was seen at the walk in on 06/26/24 for an ear infection. Pt states she finished the antibiotics but she states she is still having pain in her right ear that is keeping her up at night. Denies fevers or chills. [facility] Medical History Obesity Panic disorder Depression Surgical History History of lumpectomy Family History Mother No problems noted. Father Cancer Social History Housing: Apartment Alcohol intake: never Patient Tobacco Use Status: Never used Tobacco e-Cigarette/Vaping Use: Never Used Second Hand Smoke Exposure: No service: No Current occupational status: employed Cognitive needs: No Hearing needs: No Vision needs: Yes Review of Systems Const All systems reviewed & are unremarkable except as noted in HPI and below Physical Exam Vital Signs: Last Vital Signs Temp 97.3 F 07/14/24 09:02 Pulse 94 07/14/24 09:02 BP 120/62 07/14/24 09:02 Pulse Ox 99 07/14/24 09:02 Oxygen Delivery Method Room Air 07/14/24 09:02 BMI result Body Mass Index 35.1 Const General: cooperative and no acute distress; No comfortable Nutritional Appearance: obese Orientation/consciousness: patient oriented x3 HEENT Head: Yes normocephalic Ears: external ears normal and TM abnormal bulging bilateral, wth effusion serosanguinous, erythematous bilateral and retracted bilateral Face and sinus: Yes sinuses nontender Mouth: moist mucous membranes Resp Effort & Inspection: normal respiratory effort and able to speak in complete sentences Auscultation: clear to auscultation bilaterally Cardio Heart sounds: S1 normal heart sound present and S2 normal heart sound present Neuro General: patient oriented x3 Assessment & Plan Assessment & Plan (1) Otitis media: Comment: 20 min reviewing chart evaluating patient and documenting Code(s): H66.90 - Otitis media, unspecified, unspecified ear Qualifiers: Otitis media type: unspecified nonsuppurative Laterality: bilateral Qualified Code(s): H65.93 - Unspecified nonsuppurative otitis media, bilateral Plan: Ordered Cipro Drops BID Ordered Cefuroxime for 7 days. Acetaminophen for pain relief. Medications: New ciprofloxacin-dexamethasone 0.3-0.1 % 4 drps otic (ears) BID 10 days 7.5 mL 0RF H65.93 - Unspecified nonsuppurative otitis media, bilateral cefuroxime axetil 500 mg PO Q12H 7 days 14 tabs 0RF H65.93 - Unspecified nonsuppurative otitis media, bilateral Coding Level of Care Code Est Pt Level 4 (23321) Diagnoses Bilateral non-suppurative otitis media H65.93 Otitis media type: unspecified nonsuppurative Laterality: bilateral Time Spent (min) 20
== END 2024-07-14 09:25 | disposition home or self-care (01) ==
PROVIDERS: PCP Internal Medicine; Visit Provider Nurse Practitioner Family
DX: H65.93 Unspecified nonsuppurative otitis media, bilateral (principal)

== ENCOUNTER → 2024-07-14 09:01 | Outpatient (BNVA) | payer OTHER, MEDICAID, SELFPAY | PROVIDERS: PCP Internal Medicine ==

== ENCOUNTER 2024-07-22 09:37 | Outpatient (AMB) | payer OTHER, MEDICAID, SELFPAY ==
--- NOTE | 2024-07-22 10:23 | AM.OFFWIN_ITS ---
Intake Vital Signs 07/22/24 10:25 Height 5 ft 2 in Weight 187 lb BMI 34.2 BP 130/82 Blood Pressure Location Lt brachial Position Sitting Pulse 106 H Pulse Source Pulse Oximeter Pulse Oximetry (%) 98 Oxygen Delivery Method Room Air Intake Visit Reasons: EP pain in right ear Intake Note: Patient here for right ear pain that has been present for about 4 weeks. Patient Tobacco Use Status: Never used Tobacco Allergies No Known Allergies Allergy (Verified 07/22/24 10:25) Do you need a note to return to daycare/school/sports/work: No HPI EP pain in right ear HPI Details This note is constructed using voice recognition software. While every effort has been made to ensure accuracy, product introduction manager errors may have been included. The patient is a 34 year old female who presents to the clinic today with ear pain, right more than left for the past month. She notes that she has been treated twice for ear infection with antibiotics from this clinic. The pain has subsided some but has not completely resolve. She reports the pain to feel more like a pressure, and it comes and goes. It will travel between ears. She notes that there is some sound sensitivity with it. She denies fever, chills, cough, shortness of breath. She does report that she has a yeast infection after being treated with antibiotics, and has tried the Monistat 7 day without any relief. She is also requesting a prescription for fluconazole. [facility] Medical History Obesity Panic disorder Depression Surgical History History of lumpectomy Family History Mother No problems noted. Father Cancer Social History Housing: Apartment Alcohol intake: never Patient Tobacco Use Status: Never used Tobacco e-Cigarette/Vaping Use: Never Used Second Hand Smoke Exposure: No service: No Current occupational status: employed Cognitive needs: No Hearing needs: No Vision needs: Yes Review of Systems Const All systems reviewed & are unremarkable except as noted in HPI and below Physical Exam Vital Signs: Last Vital Signs Pulse 106 H 07/22/24 10:25 BP 130/82 07/22/24 10:25 Pulse Ox 98 07/22/24 10:25 Oxygen Delivery Method Room Air 07/22/24 10:25 BMI result Body Mass Index 34.2 Const General: cooperative, healthy appearing, comfortable and no acute distress Orientation/consciousness: patient oriented x3 Limitations: no limitations HEENT Head: Yes normal to inspection Ears: hearing grossly normal bilaterally, external ears normal and TM abnormal with fluid behind the TM on the right (milky) and retracted General nose exam: Normal external nose present, No nasal discharge present and Abnormal mucous membranes and turbinates present boggy and pale Face and sinus: Yes normal facial exam and Yes sinuses nontender Mouth: Normal oral and palatal mucosa present and moist mucous membranes Throat: Yes tonsils normal, Yes uvula midline, Yes posterior oropharynx abnormal (Erythema), Yes postnasal drainage and Yes cobblestoning Eyes General: appearance normal, both eyes and all related structures Neck Neck: Yes normal visual inspection Resp Effort & Inspection: normal respiratory effort, able to speak in complete sentences, Actively coughing, no respiratory distress, not tachypneic, no tripod positioning and no use of accessory muscles Auscultation: clear to auscultation bilaterally Cardio Rate: regular rate Rhythm: regular rhythm Heart sounds: normal S1 and S2 Other: Pt declined pelvic examination. Skin General skin exam: no rashes or lesions noted Neuro General: patient oriented x3 Extrem General: Yes normal to inspection and Yes no clubbing, cyanosis or edema Assessment & Plan Assessment & Plan (1) Allergic rhinitis: Code(s): J30.9 - Allergic rhinitis, unspecified Qualifiers: Allergic rhinitis trigger: unspecified Allergic rhinitis seasonality: unspecified Qualified Code(s): J30.9 - Allergic rhinitis, unspecified Plan: Supportive measures encouraged and reviewed. Advised patient to try a Flonase nasal spray and second-generation antihistamine such as Zyrtec, Claritin, Valerie or similar. Advised consideration of sinus rinse if needed. Advised patient to follow up with primary care provider with worsening or failure to resolve. (2) Yeast infection: Code(s): B37.9 - Candidiasis, unspecified Plan: Fluconazole prescription sent to requested pharmacy. Advised patient to follow up with worsening or failure to resolve. Plan See above for full details and plan. Medications: New fluticasone propionate 50 mcg/actuation (Flonase Allergy Relief) administer into each nostril 1 spray intranasal BID PRN 16 grams 0RF allergy symptoms fluconazole 150 mg PO ONCE 1 day 1 tab 0RF Coding Level of Care Code Est Pt Level 3 (68940) Diagnoses Allergic rhinitis, unspecified seasonality, unspecified trigger J30.9 Allergic rhinitis trigger: unspecified Allergic rhinitis seasonality: unspecified Yeast infection B37.9
[2024-07-22 10:25] VITALS: BP 130/82; PULSE 106; O2SAT 98; BMI 34.2
== END 2024-07-22 11:14 | disposition home or self-care (01) ==
PROVIDERS: PCP Internal Medicine; Visit Provider Registered Nurse
DX: J30.9 Allergic rhinitis, unspecified (principal); B37.9 Candidiasis, unspecified

== ENCOUNTER → 2024-07-22 09:37 | Outpatient (BNVA) | payer OTHER, MEDICAID, SELFPAY | PROVIDERS: PCP Internal Medicine; Visit Provider Registered Nurse ==

== ENCOUNTER 2024-08-21 09:43 | Outpatient (AMB) | payer OTHER, MEDICAID, SELFPAY ==
[2024-08-21 09:57] VITALS: BP 112/70; PULSE 92; O2SAT 99
--- NOTE | 2024-08-21 09:57 | AM.OFFWIN_ITS ---
Intake Vital Signs 08/21/24 09:57 Weight 191 lb 8 oz BP 112/70 Blood Pressure Location Rt brachial Position Sitting Pulse 92 Pulse Source Pulse Oximeter Pulse Oximetry (%) 99 Oxygen Delivery Method Room Air Intake Visit Reasons: EP severe pain on LT side of hip Intake Note: Patient here for severe left hip pain that has been present for about 3 days. Patient Tobacco Use Status: Never used Tobacco Allergies No Known Allergies Allergy (Verified 08/21/24 09:59) Do you need a note to return to daycare/school/sports/work: No HPI HPI Comments History of Present Illness Details Patient is a 34-year-old female complaining of left-sided hip pain for 3 days. She denies any injury or new exercise regimen. She states the pain does not radiate and it feels like a throbbing aching pain that is in her left side low back/buttocks. She states it is worse when she moves her leg a certain way. She has tried using ice and heat and taking 1600 mg of ibuprofen without relief of her pain PFSH Medical History Obesity Panic disorder Depression Surgical History History of lumpectomy Family History Mother No problems noted. Father Cancer Social History Housing: Apartment Alcohol intake: never Patient Tobacco Use Status: Never used Tobacco e-Cigarette/Vaping Use: Never Used Second Hand Smoke Exposure: No service: No Current occupational status: employed Cognitive needs: No Hearing needs: No Vision needs: Yes Review of Systems Const All systems reviewed & are unremarkable except as noted in HPI and below Physical Exam Vital Signs: Last Vital Signs Pulse 92 08/21/24 09:57 BP 112/70 08/21/24 09:57 Pulse Ox 99 08/21/24 09:57 Oxygen Delivery Method Room Air 08/21/24 09:57 Const General: cooperative, healthy appearing and comfortable Orientation/consciousness: patient oriented x3 HEENT Head: Yes normal to inspection and Yes normocephalic General nose exam: Normal external nose present Face and sinus: Yes normal facial exam Eyes General: appearance normal, both eyes and all related structures Resp Effort & Inspection: normal respiratory effort and able to speak in complete sentences Back/Spine/Pelvis Cervical Spine: normal cervical lordosis, cervical ROM normal and No Cervical spine tenderness Thoracic/Lumbar Spine: thoracic and lumbar spine normal to inspection, paraspinal muscle tenderness on the left in the upper thoracic and in the mid lumbar, thoraco-lumbar ROM limited, No thoracic spinal tenderness and No lumbar spinal tenderness Pelvis: no pain with lateral compression and buttock tenderness on the left Neuro General: patient oriented x3 Extrem Other: Straight leg raise test negative on right; Straight leg raise test negative on left; Reflexes normal ankle and knee bilaterally; motor strength normal bi laterally Assessment & Plan Assessment & Plan (1) Low back pain: Code(s): M54.50 - Low back pain, unspecified Qualifiers: Chronicity: acute Back pain laterality: left Sciatica presence: without sciatica Qualified Code(s): M54.50 - Low back pain, unspecified Plan: We will get an x-ray as pain was very acute with no trauma. Also sent meloxicam to pharmacy but educated patient she should not take any ibuprofen or a leave while taking meloxicam. Also educated patient that she should never take 1600 mg of ibuprofen at a time as that can damage her kidneys. Plan see above Orders: Orders XR hip LT w PEL1V Today M54.50 - Low back pain, unspecified XR lumbar spine 4V min Today M54.50 - Low back pain, unspecified Medications: New meloxicam 15 mg PO DAILY 10 tabs 0RF Coding Level of Care Code Est Pt Level 4 (89857) Diagnoses Acute left-sided low back pain without sciatica M54.50 Chronicity: acute Back pain laterality: left Sciatica presence: without sciatica
== END 2024-08-21 11:00 | disposition home or self-care (01) ==
PROVIDERS: PCP Internal Medicine; Visit Provider Physician Assistant
DX: M54.50 Low back pain, unspecified (principal)

== ENCOUNTER 2024-08-21 09:43 | Outpatient (REF) | payer OTHER, MEDICAID, SELFPAY ==
--- NOTE | ~2024-08-21 | XR_ITS ---
EXAMINATION: XR LUMBAR SPINE CLINICAL INFORMATION: Lower back pain. COMPARISON: Lumbar spine radiographs dated 08/04/2019. TECHNIQUE: AP, lateral, coned-down, and bilateral oblique views of the lumbar spine. FINDINGS: The lumbar lordosis is maintained. No acute fracture or subluxation. Mild dextrocurvature of the lumbar spine, unchanged. No loss of vertebral body or intervertebral disc height. No concerning lytic or blastic osseous lesion. No abnormal soft tissue calcification. Unremarkable facets. XR/XR lumbar spine 4V min IMPRESSION: Mild dextrocurvature of the lumbar spine, unchanged. No acute osseous abnormality. Electronically signed by: Martin Chadwick MD 08/21/2024 12:06 PM [facility]
--- NOTE | ~2024-08-21 | XR_ITS ---
EXAMINATION: XR HIP, LEFT CLINICAL INFORMATION: Left hip pain COMPARISON: None available. TECHNIQUE: AP view the pelvis as well as AP and frog-leg lateral views of the left hip. FINDINGS: No fracture. Alignment is anatomic. Hip joint space is maintained. Soft tissues are unremarkable. XR/XR hip LT w PEL1V IMPRESSION: Unremarkable examination. Electronically signed by: Martin Chadwick MD 08/21/2024 11:59 AM [facility]
== END 2024-08-21 09:44 | disposition home or self-care (01) ==
LOC: HO.HMGCX 09:43
PROVIDERS: PCP Internal Medicine; Visit Provider Physician Assistant
DX: M54.50 Low back pain, unspecified (principal)
CPT/HCPCS: 72110; 73502

== ENCOUNTER 2024-12-18 08:26 | Outpatient (AMB) | payer OTHER, MEDICAID, SELFPAY ==
--- OUTSIDE RECORDS SUMMARY | 2024-12-18 08:52 | XMS_ITS | Clinical Summary ---
Author Organization [facility] Address [address] [place] [address] Care Team Providers Care Theatrical Rigger Name Role Phone Tomás Albert Primary Care Provider [phone] Allergies No known active allergies Medications nitrofurantoin monohydrate/mac rocrystals (MACROBID) 100 mg capsule Take 1 capsule (100 mg total) by mouth every 12 hours for 5 days. 10 capsule 12/15/2024 Active fluconazole (DIFLUCAN) 150 mg tablet Take 1 tablet (150 mg total) by mouth once a day. 2 tablet 12/15/2024 Active Encounters Date Type Department Care Team Description 12/15/2024 1:50 PM EST Office Visit [address] [facility] [address] [place] [id number] Gerber Pérez PA Urinary tract infection without hematuria, site unspecified (Primary Dx); Dysuria from Last 3 Months Social History Tobacco Use Types Packs/Day Years Used Date Smoking Tobacco: Never Assessed Comments No Sex and Gender Information Value Date Recorded Sex Assigned at Not on file Legal Sex Female 11:07 PM EDT Gender Identity Not on file Sexual Orientation Not on file Last Filed Vital Signs Vital Sign Reading Time Taken Comments Blood Pressure 128/86 12/15/2024 1:45 PM EST Pulse 90 12/15/2024 1:45 PM EST Temperature 36.1 ??C (97 ??F) 12/15/2024 1:45 PM EST Respiratory Rate 16 04/24/2023 11:25 PM EDT Oxygen Saturation 97% 12/15/2024 1:45 PM EST Inhaled Oxygen Concentration - - Weight 93.1 kg (205 lb 3.2 oz) 04/24/2023 11:25 PM EDT Height 157.5 cm (5' 2 ) 04/24/2023 11:25 PM EDT Body Mass Index 37.53 04/24/2023 11:25 PM EDT Plan of Treatment Health Maintenance Due Date Last Done Comments Cervical Cancer Screening 1991 HIV Screening 1991 HPV and Pap Smear 1991 Pap Smear 1991 Varicella Vaccines (1 of 2 - 13+ 2-dose series) 02/25/2004 Hepatitis B Vaccines (1 of 3 - 19+ 3-dose series) 2010 DTaP,Tdap,and Td Vaccines (1 - Tdap) 2013 COVID-19 Vaccine (3 - 2023-2 5 season) 2024 07/19/2021, 06/28/2021 Influenza Vaccine (#1) 2024 Alcohol/Substance Use Screening 10/14/2024 RSV Vaccine (60+ years old and patients) (1 - 1-dose 75+ series) 2066 Pneumococcal Vaccine: Pediatric (0-5 Years) and At-Risk Patients (6-50 Years) Aged Out No longer eligible based on patient's age to complete this topic Procedures * Due to [place] law, this organization might not be sharing negative HIV tests. Procedure Name Priority Date/Time Associated Diagnosis Comments NUSWAB VAGINITIS PLUS (VG+) - [facility] - [id number] Routine 12/15/2024 3:57 PM EST Dysuria POCT URINALYSIS DIPSTICK, NON-INTERFACED Routine 12/15/2024 2:06 PM EST Dysuria URINE CULTURE [id number] Routine 12/15/2024 1:00 PM EST URINE CULTURE, ROUTINE - P - [id number] Routine 12/15/2024 1:00 PM EST Dysuria from Last 3 Months Results * Due to [place] law, this organization might not be sharing negative HIV tests. * (ABNORMAL) NuSwab Vaginitis Plus (VG+) (12/15/2024 3:57 PM EST) Atopobium vaginae Moderate - 1 Score [facility]0 1 BVAB 2 High - 2(A) Score [facility]01 Megasphaera 1 High - 2(A) Score [facility] Comment: Calculate total score by adding the 3 individual bacterial vaginosis (BV) marker scores together. ??Total score is interpreted as follows: Total score 0-1: Indicates the absence of BV. Total score ?? 2: Indeterminate for BV. Additional clinical ? data should be evaluated to establish a ? diagnosis. Total score 3-6: Indicates the presence of BV. Maame albicans, CAIT Negative Negative [facility]01 Maame glabrata, CAIT Negative Negative [facility] Trich vag by CAIT Positive(A) Negative [facility] Chlamydia trachomatis, CAIT Negative Negative [facility] Neisseria gonorrhoeae, CAIT Negative Negative [facility] Swab Vaginal structure / Unknown 12/15/2024 3:57 PM EST 12/15/2024 Comment:RADHA Narrative [facility] - 12/17/2024 8:05 PM EST Test(s) 187332- ?Atopobium vaginae; 971314- ?BVAB 2; 151589- ?Megasphaera 1 was developed and its performance characteristics determined by [facility]. It has not been cleared or approved by the Food and Drug Administration. Test(s) 776296-Qgyknoa albicans, CAIT; 865369-Tieluja glabrata, CAIT was developed and its performance characteristics determined by [facility]. It has not been cleared or approved by the Food and Drug Administration. Performed at: ??01 - [facility] [address] ??[id number] Financial Planning Adviser: Bela Sommers MD, Phone: ??[phone] Gerber BENDER [facility] ORDERABLES Ave t[place] Result [facility] * (ABNORMAL) POCT Urinalysis Dipstick, Manual, non-interfaced (12/15/2024 2:06 PM EST) Color, UA Yenny(A) Yellow Clarity, UA Clear Clear Glucose, UA Negative Negative mg/dL Bilirubin, UA Negative Negative Ketones, UA Negative Negative mg/dL Spec Grav, UA 1.025 1.005 - 1.030 Blood, UA Large(A) Negative pH, UA 5.0 5.0 - 8.5 Protein, UA Negative Negative mg/dL Urobilinogen, UA 0.2 0.2 - 1.0 E.U. /dL mg/dL Nitrite, UA Negative Negative Leukocytes, UA Large(A) Negative Urine 12/15/2024 2:06 PM EST Gerber MEZA POINT OF CARE TEST ORDERABL ES Final Result from Last 3 Months Insurance [facility] Care Teams Theatrical Rigger Relationship Specialty Start Date End Date Tomás Albert [address] [place] [address] [place] [address] PCP - General Internal Medicine 04/24/23
--- OUTSIDE RECORDS SUMMARY | 2024-12-18 08:52 | XMS_ITS | Encounter Summary ---
Author Organization [facility] Address [address] [place] [address] Care Team Providers Care Clearing Distribution Clerk Name Role Phone Tomás Albert Primary Care Provider [phone] Reason for Visit * Reason Comments UTI Has been with sympto ms for 3 days now. Has burning, frequent urination. Also wants to get checked for std. Encounter Details Date Type Department Care Team ([facility] st Contact Info) Description 12/15/2024 1:50 PM EST Office Visit [address] [facility] [address] [place] [id number] Gerber Pérez PA [address] [place] [address] [place] [phone] Urinary tract infection without hematuria, site unspecified (Primary Dx); Dysuria Social History Tobacco Use Types Packs/Day Years Used Date Smoking Tobacco: Never Assessed Comments No Sex and Gender Information Value Date Recorded Sex Assigned at Not on file Legal Sex Female 11:07 PM EDT Gender Identity Not on file Sexual Orientation Not on file documented as of this encounter Last Filed Vital Signs Vital Sign Reading Time Taken Comments Blood Pressure 128/86 12/15/2024 1:45 PM EST Pulse 90 12/15/2024 1:45 PM EST Temperature 36.1 ??C (97 ??F) 12/15/2024 1:45 PM EST Respiratory Rate - - Oxygen Saturation 97% 12/15/2024 1:45 PM EST Inhaled Oxygen Concentration - - Weight - - Height - - Body Mass Index - - documented in this encounter Progress Notes * SUSANA Fox - 12/15/2024 1:53 PM EST Subjective Patient ID: Joie is a 34 y.o. female. HPI Pt is a 34 y.o female presented with burning on urination, urinary frequency for the past 3 days. Pt is also requesting STD testing. She denies fever, back pain, nausea. Pt request for Diflucan if antibiotic is given due to her previous h/o vaginal yeast infections. Review of Systems Constitutional: Negative. Eyes: Negative. Respiratory: Negative. Cardiovascular: Negative. Gastrointestinal: Negative. Genitourinary: Positive for dysuria and frequency. Objective Vitals: 12/15/24 1345 BP: 128/86 Pulse: 90 Temp: 36.1 ??C (97 ??F) SpO2: 97% Physical Exam Constitutional: Appearance: Normal appearance. Cardiovascular: Rate and Rhythm: Normal rate and regular rhythm. Pulmonary: Effort: Pulmonary effort is normal. Breath sounds: Normal breath sounds. Abdominal: General: Bowel sounds are normal. Tenderness: There is no right CVA tenderness or left CVA tenderness. Neurological: Mental Status: She is alert. Assessment & Plan No problem-specific Assessment & Plan notes found for this encounter. Diagnoses and all orders for this visit: Dysuria - POCT Urinalysis Dipstick, Manual, non-interfaced - NuSwab Vaginitis Plus (VG+) Urinary tract infection Macrobid q12h for 5 days Diflucan 150 mg 2 tabs Good hydration Nuswab is pending No follow-ups on file. documented in this encounter Plan of Treatment Pending Results Name Type Priority Associated Diagnoses Date /Time Urine Culture, Routine Lab Routine Dysuria 12/15/2024 1:00 PM EST Urine Culture Lab Routine 12/15/2024 1:00 PM EST documented as of this encounter Procedures * Due to [place] state law, this organization might not be sharing negative HIV tests. Procedure Name Priority Date/Time Associated Diagnosis Comments NUAB VAGINITIS PLUS (VG+) - P - [id number] Routine 12/15/2024 3:57 PM EST Dysuria POCT URINALYSIS DIPSTICK, NON-INTERFACED Routine 12/15/2024 2:06 PM EST Dysuria URINE CULTURE [id number] Routine 12/15/2024 1:00 PM EST URINE CULTURE, ROUTINE - LCP - [id number] Routine 12/15/2024 1:00 PM EST Dysuria documented in this encounter Results * Due to [place] state law, this organization might not be sharing negative HIV tests. * (ABNORMAL) Nuab Vaginitis Plus (VG+) (12/15/2024 3:57 PM EST) [...] / Unknown 12/15/2024 3:57 PM EST 12/15/2024 Comment:[place] Narrative [facility] - 12/17/2024 8:05 PM EST Test(s) 687504- ?Atopobium vaginae; 337482- ?BVAB 2; 634072- ?Megasphaera 1 was developed and its performance characteristics determined by [facility]. It has not been cleared or approved by the Food and Drug Administration. Test(s) 065528-Xoedwuo albicans, CAIT; 859301-Upplmzn glabrata, CAIT was developed and its performance characteristics determined by [facility]. It has not been cleared or approved by the Food and Drug Administration. Performed at: ??01 - [facility] [address] ??[id number] Cover Assembler: Bela Sommers MD, Phone: ??[phone] Gerber MEZA AMB [facility] ORDERABLES Ave t[place] Result [facility] [...] OF CARE TEST ORDERABL ES Final Result documented in this encounter Visit Diagnoses Diagnosis Urinary tract infection without hematuria, site unspecified- Primary Dysuria documented in this encounter Care Teams Clearing Distribution Clerk Relationship Specialty Start Date End Date Tomás Albert [address] [place] [address] [place] [address] PCP - General Internal Medicine 04/24/23 documented as of this encounter
--- OUTSIDE RECORDS SUMMARY | 2024-12-18 08:52 | XMS_ITS | Referral Summary ---
Author Organization [facility] Address [address] [place] [address] Care Team Providers Care Exterior Work Helper Name Role Phone Tomás Albert Primary Care Provider [phone] Encounters Date Type Department Care Team Description 12/15/2024 1:50 PM EST Office Visit [address] [facility] [address] [place] [address] Gerber Pérez PA Urinary tract infection without hematuria, site unspecified (Primary Dx); Dysuria from Last 3 Months Allergies No known active allergies Medications nitrofurantoin monohydrate/mac rocrystals (MACROBID) 100 mg capsule Take 1 capsule (100 mg total) by mouth every 12 hours for 5 days. 10 capsule 12/15/2024 Active fluconazole (DIFLUCAN) 150 mg tablet Take 1 tablet (150 mg total) by mouth once a day. 2 tablet 12/15/2024 Active Social History Tobacco Use Types Packs/Day Years [...] 04/24/2023 11:25 PM EDT Plan of Treatment Not on file Procedures * Due to [place] law, this organization might not be sharing negative HIV tests. Procedure Name Priority Date/Time Associated Diagnosis Comments NUSWAB VAGINITIS PLUS (VG+) - [facility] - [id number] Routine 12/15/2024 3:57 PM EST Dysuria POCT URINALYSIS DIPSTICK, NON-INTERFACED Routine 12/15/2024 2:06 PM EST Dysuria URINE CULTURE [id number] Routine 12/15/2024 1:00 PM EST URINE CULTURE, ROUTINE - [facility] - [id number] Routine 12/15/2024 1:00 PM EST Dysuria from Last 3 Months Results * Due to [place] law, this organization might not be sharing [...] [facility] - 12/17/2024 8:05 PM EST Test(s) 378436- ?Atopobium vaginae; 162580- ?BVAB 2; 191227- ?Megasphaera 1 was developed and its performance characteristics determined by [facility]. It has not been cleared or approved by the Food and Drug Administration. Test(s) 113139-Zastqkt albicans, CAIT; 989059-Hbrfqvg glabrata, CAIT was developed and its performance characteristics determined by [facility]. It has not been cleared or approved by the Food and Drug Administration. Performed at: ??01 - [facility] ??[id number] Control Clerk Food And Beverage: Bela Sommers MD, Phone: ??[phone] Gerber MEZA [facility] ORDERABLES Ave t[place] Result [facility] * (ABNORMAL) POCT Urinalysis Dipstick, Manual, [...] Final Result from Last 3 Months Insurance [facility] Care Teams Exterior Work Helper Relationship Specialty Start Date End Date Tomás Albert [address] [place] [address] [place] [address] PCP - General Internal Medicine 04/24/23
[2024-12-18 09:15] VITALS: BP 120/80; PULSE 60; TEMP 36.9; O2SAT 98; BMI 35.8
--- NOTE | 2024-12-18 09:15 | AM.OFFWIN_ITS ---
Intake Vital Signs 12/18/24 09:15 Height 5 ft 2 in Weight 196 lb BMI 35.8 BP 120/80 Blood Pressure Location Lt brachial Position Sitting Pulse 60 Pulse Source Pulse Oximeter Temp 98.5 F Temp Source Oral Pulse Oximetry (%) 98 Intake Visit Reasons: EP-sore throat, rt ear pain Intake Note: pt is here for sore throat, right ear pain Patient Tobacco Use Status: Never used Tobacco Allergies No Known Allergies Allergy (Verified 12/18/24 09:15) Do you need a note to return to daycare/school/sports/work: Yes HPI EP-sore throat, rt ear pain HPI Details 34-year-old female patient who presents to the walk-in clinic today with sore throat and right ear pain. States her daughter recently was diagnosed with strep pharyngitis. States she has had very sore throat and enlarged tonsils, and recently her right ear started to ache. Denies any fevers. Denies any respiratory symptoms. Is currently on nitrofurantoin for a UTI - 2 days left in rx. [facility] Medical History Obesity Panic disorder Depression Surgical History History of lumpectomy Family History Mother No problems noted. Father Cancer Social History Housing: Apartment Alcohol intake: never Patient Tobacco Use Status: Never used Tobacco e-Cigarette/Vaping Use: Never Used Second Hand Smoke Exposure: No service: No Current occupational status: employed Cognitive needs: No Hearing needs: No Vision needs: Yes Review of Systems Const All systems reviewed & are unremarkable except as noted in HPI and below Physical Exam Vital Signs: Last Vital Signs Temp 98.5 F 12/18/24 09:15 Pulse 60 12/18/24 09:15 BP 120/80 12/18/24 09:15 Pulse Ox 98 12/18/24 09:15 BMI result Body Mass Index 35.8 Const General: cooperative and no acute distress Limitations: no limitations HEENT Head: Yes normal to inspection Ears: hearing grossly normal bilaterally, external ears normal, TM normal on the left and TM abnormal (right TM erythematous, purulent effusion) General nose exam: Normal external nose present Face and sinus: Yes normal facial exam Mouth: Normal oral and palatal mucosa present Throat: Yes posterior oropharynx abnormal ( tonsillar hypertrophy, exudate, erythema) Neck Neck: Yes no lymphadenopathy Resp Effort & Inspection: normal respiratory effort Auscultation: clear to auscultation bilaterally Cardio Rate: regular rate Rhythm: regular rhythm Heart sounds: S1 normal heart sound present and S2 normal heart sound present Skin General skin exam: no rashes or lesions noted Extrem General: Yes capillary refill normal and Yes no clubbing, cyanosis or edema Psych Appearance: grossly normal Mental Status: mental status grossly normal Speech and movement: Normal speech and movement present Results AMB Rapid Strep AMB Rapid Strep Positive Last Edit by Sean Mims CMA on 12/18/24 09 :31 Results Reviewed Results Reviewed: Laboratory Last Values Strep Scn Rapid Clinic Positive 12/18/24 09:30 Assessment & Plan Assessment & Plan (1) Strep pharyngitis: Code(s): J02.0 - Streptococcal pharyngitis Plan: Pen V 500 TID 10 days. Advised discarding toothbrush. Advised warm/saltwater gargles and otc lozenges as needed. May take Tylenol as well prn. We reviewed indications, use, possible side effects of medication. She states that she inevitably gets yeast infection with any antibiotic use. Will prescribe fluconazole p.o. as well. We reviewed use of this. (2) Right otitis media with effusion: Code(s): H65.91 - Unspecified nonsuppurative otitis media, right ear Plan: On PCN. Will return to clinic if unresolved with abx use. Orders: Orders AMB Rapid Strep Screen Today Beatriz Reeves PA-C Z13.9 - Encounter for screening, unspecified Medications: New 2 fluconazole may repeat second dose 72 hrs after first dose if symptoms persist. Do not take with Hydroxyzine. 150 mg PO Q3D 2 tabs 0RF Kiana Lira, [employer] penicillin V potassium take 1 tablet by mouth 3 times a day for 10 days 500 mg PO TID 10 days 30 tabs 0RF HAYLEY MuñozP J02.0 - Streptococcal pharyngitis Coding Level of Care Code Est Pt Level 4 (86729) Diagnoses Strep pharyngitis J02.0 Right otitis media with effusion H65.91
== END 2024-12-18 09:49 | disposition home or self-care (01) ==
PROVIDERS: Visit Provider Nurse Practitioner Family
DX: J02.0 Streptococcal pharyngitis (principal); H65.91 Unspecified nonsuppurative otitis media, right ear; Z13.9 Encounter for screening, unspecified

== ENCOUNTER → 2024-12-18 08:26 | Outpatient (BNVA) | payer OTHER, MEDICAID, SELFPAY | PROVIDERS: PCP Internal Medicine; Visit Provider Nurse Practitioner Family | DX: J02.0 Streptococcal pharyngitis (principal); H65.91 Unspecified nonsuppurative otitis media, right ear | CPT/HCPCS: 87880 ==

== ENCOUNTER 2025-02-09 14:01 | Outpatient (AMB) | payer OTHER, MEDICAID, SELFPAY ==
--- NOTE | 2025-02-09 15:04 | AM.OFFWIN_ITS ---
Intake Vital Signs 02/09/25 15:06 Weight 197 lb BP 130/82 Blood Pressure Location Lt brachial Position Sitting Pulse 80 Pulse Source Pulse Oximeter Pulse Oximetry (%) 98 Oxygen Delivery Method Room Air Intake Visit Reasons: EP-neck pain Intake Note: Patient here for neck pain that radiates down the right arm which started about 3-4 days ago. Patient Tobacco Use Status: Never used Tobacco Allergies No Known Allergies Allergy (Verified 02/09/25 15:05) Do you need a note to return to daycare/school/sports/work: No HPI HPI Comments History of Present Illness Details History of Present Illness - The patient is a 34-year-old female pr esenting with right sided neck pain with muscular spasm. - She reports the onset of neck pain amy t radiates to her arm, accompanied by numbness, tingling, and occasional shaking, without associated weakness. - The symptoms began approximately four to five days prior to the visit. - The patient suspects that care activit ies involving lifting her father could have aggravated her condition. - She has attempted symptomatic relief w ith ibuprofen, up to 1000 mg, without success. - Additional efforts using Tylenol, heat , or icing have also offered no relief. - She denies any specific incident of in jury but correlates her symptoms with her caregiving tasks. - The patient observes that physical act ivities such as lifting increase the pain. - Pt also asking for refill on naproxen for when she is done with diclofenac treatment Physical Exam General: Cooperative, healthy appearing, comfortable, no acute distress and well developed Orientation: Patient oriented x3 Limitations: No limitations Head: Normal to inspection Ears: Hearing grossly normal bilaterally Nose: Normal External nose present Face and sinus: Normal facial exam Eyes: Appearance normal, both eyes and all related structures Neck: Painful on palpation, no swelling noted, full ROM Respiratory: Normal respiratory effort and able to speak in complete sentences Back/spine: no ttp cervical spine, ttp paraspinous muscles and right trapezius with spasms noted Skin: No rashes or lesions noted Neuro: Patient oriented x3 Extremities: Normal to inspection [facility] Medical History Obesity Panic disorder Depression Surgical History History of lumpectomy Family History Mother No problems noted. Father Cancer Social History Housing: Apartment Alcohol intake: never Patient Tobacco Use Status: Never used Tobacco e-Cigarette/Vaping Use: Never Used Second Hand Smoke Exposure: No service: No Current occupational status: employed Cognitive needs: No Hearing needs: No Vision needs: Yes Review of Systems Const All systems reviewed & are unremarkable except as noted in HPI and below Physical Exam Vital Signs: Last Vital Signs Pulse 80 02/09/25 15:06 BP 130/82 02/09/25 15:06 Pulse Ox 98 02/09/25 15:06 Oxygen Delivery Method Room Air 02/09/25 15:06 Assessment & Plan Assessment & Plan (1) Neck pain: Code(s): M54.2 - Cervicalgia Plan: The current management plan involves the administration of diclofenac for anti- inflammatory relief, with avoidance of additional NSAID use to prevent interactions. Acetaminophen can be used concurrently for added analgesia. Cyclobenzaprine is advised for its muscle-relaxing properties, and the patient should be mindful of increased sedation effects. Maintaining heat application may assist in alleviating discomfort. The pharmaceutical directive ensures these prescriptions are used appropriately, left to the pharmacy?s discretion for dispensation constraints if applied consecutively. Further assessment and oversight are recommended with her primary care provider, given the recently retired physician scenario, to ensure continuity and comprehensive follow-up care. Patient was informed and verbally consented to the use of an ambient scribe for clinic note documentation during this visit. Medications: New cyclobenzaprine 5 mg PO Q8H PRN 20 tabs 0RF Muscle Spasm diclofenac sodium 50 mg PO Q12H PRN 20 tabs 0RF pain Refilled naproxen (Naprosyn) 500 mg PO BID PRN 30 tabs 0RF pain Coding Level of Care Code Est Pt Level 3 (21348) Diagnoses Neck pain M54.2
[2025-02-09 15:06] VITALS: BP 130/82; PULSE 80; O2SAT 98
--- OUTSIDE RECORDS SUMMARY | 2025-02-09 16:12 | XMS_ITS | Clinical Summary ---
Author Organization [facility] Address [address] [place] [address] Care Team Providers Care Business Management Analyst Name Role Phone Tomás Albert Primary Care Provider [phone] Allergies No known active allergies Medications fluconazole (DIFLUCAN) 150 mg tablet Take 1 tablet (150 mg total) by mouth once a day. 2 tablet 12/15/2024 Active Encounters Date Type Department Care Team Description 12/21/[address] [address] Robbie Goodman PA 12/21/2024 Orders Only [address] [address] Robbie Goodman PA BV (bacterial vaginosis) (Primary Dx) 12/21/[address] [address] Robbie Goodman PA 12/19/[address] [address] Singh Blanc RN 12/19/2024 Orders Only [address] [address] oRbbie Goodman PA BV (bacterial vaginosis) (Primary Dx); Trichomonas infection; Urinary tract infection associated with catheterization of urinary tract, unspecified indwelling urinary catheter type, initial encounter 12/18/2024 Results Follow-Up [address] [address] Singh Blanc RN 12/15/2024 1:50 PM EST Office Visit [address] [facility] [address] [place] [address] Gerber Pérez PA Urinary tract infection without [...] Screening 1991 HPV and Pap Smear 1991 Hepatitis C Screening 1991 Pap Smear 1991 Varicella Vaccines (1 of 2 - 13+ 2-dose series) 02/25/2004 Hepatitis B Vaccines (1 of 3 - 19+ 3-dose series) 2010 DTaP,Tdap,and Td Vaccines (1 - Tdap) 2013 COVID-19 Vaccine ( - 2023-2 5 season) 2024 07/19/2021, 06/28/2021 Alcohol/Substance Use Screening 10/14/2024 Depression Screening and Follow-Up 10/14/2024 Social Drivers of Health Annual Screening 10/14/2024 Influenza Vaccine (Season Ended) 2025 RSV Vaccine (60+ years old and patients) (1 - 1-dose 75+ series) 2066 Pneumococcal Vaccine: Pediatric (0-5 Years) and At-Risk Patients (6-50 Years) Aged Out No longer eligible based on patient's age to complete this topic Procedures * Due to [place] [employer] law, this organization might not be sharing negative HIV tests. Procedure Name Priority Date/Time Associated Diagnosis Comments NUSWAB VAGINITIS PLUS (VG+) - [facility] - [id number] Routine 12/15/2024 3:57 PM EST Dysuria POCT URINALYSIS DIPSTICK, NON-INTERFACED Routine 12/15/2024 2:06 PM EST Dysuria URINE CULTURE [id number] Routine 12/15/2024 1:00 PM EST URINE CULTURE, ROUTINE - [facility] - [id number] Routine 12/15/2024 1:00 PM EST Dysuria from Last 3 Months Results * Due to [place] [employer] law, this organization might not be sharing [...] [facility] - 12/17/2024 8:05 PM EST Test(s) 920440- ?Atopobium vaginae; 048005- ?BVAB 2; 530200- ?Megasphaera 1 was developed and its performance characteristics determined by [facility]. It has not been cleared or approved by the Food and Drug Administration. Test(s) 760163-Jdjyrib albicans, CAIT; 454816-Ldojtna glabrata, CAIT was developed and its performance characteristics determined by [facility]. It has not been cleared or approved by the Food and Drug Administration. Performed at: ??01 - [facility] ??[id number] Press Tender: Bela Sommers MD, Phone: ??[phone] Gerber MEZA [facility] ORDERABLES Ave tijerina Result [facility] * (ABNORMAL) POCT Urinalysis Dipstick, Manual, non-interfaced (12/15/2024 2:06 PM EST) Pathologist [facility] Color, UA Yenny(A) Yellow Clarity, UA Clear [...] OF CARE TEST ORDERABL ES Final Result * (ABNORMAL) Urine Culture (12/15/2024 1:00 PM EST) Result 1 Comment(A) [facility] Comment: Vancomycin-resistant Enterococcus (Enterococcus faecalis) For Enterococcus species, aminoglycosides (except for high-level resistance screening), cephalosporins, clindamycin, and trimethoprim-sulfamethoxazole are not effective clinically. (CLSI, U825-O72, 2016) Enterococci susceptible to penicillin are predictably susceptible to ampicillin, amoxicillin, ampicillin-sulbactam, amoxicillin-clavulanate, and piperacillin-tazobactam for xsr-xxqc-tlkjvlzpl producing enterococci. (CLSI 2018) Linezolid ?S Result 2 Comment(A) [facility] Comment: Beta hemolytic Streptococcus, group B Less than 10,000 colonies/mL Penicillin and ampicillin are drugs of choice for treatment of beta-hemolytic streptococcal infections. Susceptibility testing of penicillins and other beta-lactam agents approved by the FDA for treatment of beta-hemolytic streptococcal infections need not be performed routinely because nonsusceptible isolates are extremely rare in any beta-hemolytic streptococcus and have not been reported for Streptococcus pyogenes (group A). (CLSI) Antimicrobial Susceptibility Comment [facility] Comment: ? S = Susceptible; I = Intermediate; R = Resistant ? P = Positive; N = Negative ?MICS are expressed in micrograms per mL ?? Antibiotic ? RSLT#1 ?RSLT#2 ?RSLT#3 ?RSLT#4 Ciprofloxacin ?S Levofloxacin ? S Nitrofurantoin ? S Penicillin ? S Tetracycline ? R Vancomycin ? R 12/15/2024 1:00 PM EST 12/15/2024 Narrative [facility] - 12/21/2024 12:05 PM EDT Performed at: ??01 - [facility] [address] ??[id number] Press Tender: Bela Sommers MD, Phone: ??[phone] Emiliroxy MEZA AMB [facility] ORDERABLES Ave l Result Performing Organization Address [facility]/ZIP Co de Phone Number [facility] * (ABNORMAL) Urine Culture, Routine (12/15/2024 1:00 PM EST) Urine Culture, Routine Final report(A) [facility]01 Urine Urine specimen collection, clean catch / Unknown 12/15/2024 1:00 PM EST 12/15/2024 Comment:UR Narrative [facility] - 12/21/2024 12:05 PM EDT Performed at: ??01 - [facility] [address] ??[id number] Press Tender: Bela Sommers MD, Phone: ??[phone] [facility] Elisa MEZA AMB [facility] ORDERABLES Ave l Result Performing Organization Address [facility] Co de Phone Number [facility]01 from Last 3 Months Insurance [facility] [place] HAQ [id number] Care Teams Business Management Analyst Relationship Specialty Start Date End Date Tomás Albert [address] [place] [address] [place] [address] PCP - General Internal Medicine 04/24/23
--- OUTSIDE RECORDS SUMMARY | 2025-02-09 16:12 | XMS_ITS | Referral Summary ---
Author Organization [facility] Address [address] [place] [address] Care Team Providers Care Hotel Guest Service Agent Name Role Phone Tomás Albert Primary Care Provider [phone] Encounters Date Type Department Care Team Description 12/21/[address] [address] Robbie Goodman PA 12/21/2024 Orders Only [address] [address] Robbie Goodman PA BV (bacterial vaginosis) (Primary Dx) 12/21/[address] [address] Robbie Goodman PA 12/19/[address] [address] Singh Blanc RN 12/19/2024 Orders Only [address] [address] Robbie Goodman PA BV (bacterial vaginosis) (Primary Dx); Trichomonas infection; Urinary tract infection associated with catheterization of urinary tract, unspecified indwelling urinary catheter type, initial encounter 12/18/2024 Results Follow-Up [address] [address] Singh Blanc, LOVE 12/15/2024 1:50 PM EST Office Visit [address] [place] [address] Gerber Pérez PA Urinary tract infection without hematuria, site unspecified (Primary Dx); Dysuria from Last 3 Months Allergies No known active allergies Medications fluconazole [...] Not on file Procedures * Due to [place] [employer] law, this organization might not be sharing negative HIV tests. Procedure Name Priority Date/Time Associated Diagnosis Comments NUSWAB VAGINITIS PLUS (VG+) - [facility] - [id number] Routine 12/15/2024 3:57 PM EST Dysuria POCT URINALYSIS DIPSTICK, NON-INTERFACED Routine 12/15/2024 2:06 PM EST Dysuria URINE CULTURE [id number] Routine 12/15/2024 1:00 PM EST URINE CULTURE, ROUTINE - [facility] - [id number] Routine 12/15/2024 1:00 PM EST Dysuria from Last 3 Months Results * Due to [place] [employer] law, this organization might not be sharing [...] by CAIT Positive(A) Negative [facility] Chlamydia trachomatis, CIAT Negative Negative [facility] Neisseria gonorrhoeae, CAIT Negative Negative [facility] Swab Vaginal structure / Unknown 12/15/2024 3:57 PM EST 12/15/2024 Comment:RADHA Mcelroy [facility] - 12/17/2024 8:05 PM EST Test(s) 009119- ?Atopobium vaginae; 620160- ?BVAB 2; 013570- ?Megasphaera 1 was developed and its performance characteristics determined by [facility]. It has not been cleared or approved by the Food and Drug Administration. Test(s) 670262-Ybtcdgg albicans, CAIT; 389210-Btzijse glabrata, CAIT was developed and its performance characteristics determined by [facility]. It has not been cleared or approved by the Food and Drug Administration. Performed at: ??01 - [facility] [address] ??[id number] Gravity Flow Irrigator: Bela Sommers MD, Phone: ??[phone] us Gerber BENDER [facility] ORDERABLES Ave l Result [facility] * (ABNORMAL) POCT Urinalysis [...] and trimethoprim-sulfamethoxazole are not effective clinically. (CLSI, T740-T70, 2016) Enterococci susceptible to penicillin are predictably susceptible to ampicillin, amoxicillin, ampicillin-sulbactam, amoxicillin-clavulanate, and piperacillin-tazobactam for igp-zfbj-bxhfoouon producing enterococci. (CLSI 2018) Linezolid ?S Result [...] PM EDT Performed at: ??01 - [facility] Tab [address] [place], [place] ??[id number] Gravity Flow Irrigator: Bela Sommers MD, Phone: ??[phone] us Gerber MEZA AMB [facility] ORDERABLES Ave l Result [facility] * (ABNORMAL) Urine Culture, Routine (12/15/2024 1:00 PM EST) Urine Culture, Routine Final report(A) [facility] Urine Urine specimen collection, clean catch / Unknown 12/15/2024 1:00 PM EST 12/15/2024 Comment:UR Narrative [facility] - 12/21/2024 12:05 PM EDT Performed at: ??01 - [facility] [address] [facility] [place] ??[id number] Gravity Flow Irrigator: Bela Sommers MD, Phone: ??[phone] us Gerber MEZA AMB [facility] ORDERABLES Ave breezy Result [facility] from Last 3 Months Insurance [facility] Care Teams Hotel Guest Service Agent Relationship Specialty Start Date End Date Tomás Albert [address] [place] [address] [place] [address] PCP - General Internal Medicine 04/24/23
== END 2025-02-09 15:25 | disposition home or self-care (01) ==
PROVIDERS: Visit Provider Physician Assistant
DX: M54.2 Cervicalgia (principal)

== ENCOUNTER → 2025-02-09 14:01 | Outpatient (BNVA) | payer OTHER, MEDICAID, SELFPAY | PROVIDERS: Visit Provider Physician Assistant ==

== ENCOUNTER 2025-02-15 09:12 | Outpatient (AMB) | payer OTHER, MEDICAID, SELFPAY ==
--- OUTSIDE RECORDS SUMMARY | 2025-02-15 09:54 | XMS_ITS | Referral Summary ---
Author Organization [facility] Address [address] [place] [address] Care Team Providers Care Consultant Technology Name Role Phone Tomás Albert Primary Care Provider [phone] Encounters Date Type Department Care Team Description 12/21/[address] [address] Robbie Goodman PA 12/21/2024 Orders Only [address] [address] Robbie Goodman PA BV (bacterial vaginosis) (Primary Dx) 12/21/[address] [address] Robbie Goodman PA 12/19/[address] [address] Singh Blanc RN 12/19/2024 Orders Only [address] [address] Robbie Goodman PA BV (bacterial vaginosis) (Primary Dx); Trichomonas infection; Urinary tract infection associated with catheterization of urinary tract, unspecified indwelling urinary catheter type, initial encounter 12/18/2024 Results Follow-Up [address] [address] Singh Blanc, LOVE 12/15/2024 1:50 PM EST Office Visit [address] [place] [address] Gerber Pérez PA Urinary tract infection without [...] Not on file Procedures * Due to [place] [employer] law, this organization might not be sharing negative HIV tests. Procedure Name Priority Date/Time Associated Diagnosis Comments NUSWAB VAGINITIS PLUS (VG+) - [facility] - [id number] Routine 12/15/2024 3:57 PM EST Dysuria POCT URINALYSIS DIPSTICK, NON-INTERFACED Routine 12/15/2024 2:06 PM EST Dysuria URINE CULTURE [id number] Routine 12/15/2024 1:00 PM EST URINE CULTURE, ROUTINE - [facility] - [id number] Routine 12/15/2024 1:00 PM EST Dysuria from Last 3 Months Results * Due to [place] [employer] law, this organization might not be sharing [...] [facility] - 12/17/2024 8:05 PM EST Test(s) 247896- ?Atopobium vaginae; 848028- ?BVAB 2; 820333- ?Megasphaera 1 was developed and its performance characteristics determined by [facility]. It has not been cleared or approved by the Food and Drug Administration. Test(s) 981413-Fhibizl albicans, CAIT; 477046-Uhjnzzl glabrata, CAIT was developed and its performance characteristics determined by [facility]. It has not been cleared or approved by the Food and Drug Administration. Performed at: ??01 - [facility] [address] ??[id number] Coal Washer: Bela Sommers MD, Phone: ??[phone] us Gerber BENDER [facility] ORDERABLES Ave l [...] and trimethoprim-sulfamethoxazole are not effective clinically. (CLSI, V871-K53, 2016) Enterococci susceptible to penicillin are predictably susceptible to ampicillin, amoxicillin, ampicillin-sulbactam, amoxicillin-clavulanate, and piperacillin-tazobactam for pft-qonm-xmprcfcej producing enterococci. (CLSI 2018) Linezolid ?S Result [...] Performed at: ??01 - [facility] [address] [place], [place] ??[id number] Coal Washer: Bela Sommers MD, Phone: ??[phone] us Gerber MEZA AMB [facility] ORDERABLES Ave l Result [facility] * (ABNORMAL) Urine Culture, Routine (12/15/2024 1:00 PM EST) Urine Culture, Routine Final report(A) [facility] Urine Urine specimen collection, clean catch / Unknown 12/15/2024 1:00 PM EST 12/15/2024 Comment:UR Narrative [facility] - 12/21/2024 12:05 PM EDT Performed at: ??01 - [facility] [address] [facility] [place] ??[id number] Coal Washer: Bela Sommers MD, Phone: ??[phone] us Gerber MEZA AMB [facility] ORDERABLES Ave breezy Result [facility] from Last 3 Months Insurance [facility] Care Teams Consultant Technology Relationship Specialty Start Date End Date Tomás Albert [address] [place] [address] [place] [address] PCP - General Internal Medicine 04/24/23
--- OUTSIDE RECORDS SUMMARY | 2025-02-15 09:54 | XMS_ITS | Clinical Summary ---
Author Organization [facility] Address [address] [place] [address] Care Team Providers Care Curb Attendant Name Role Phone Tomás Albert Primary Care Provider [phone] Allergies No known active allergies Medications fluconazole (DIFLUCAN) 150 mg tablet Take 1 tablet (150 mg total) by mouth once a day. 2 tablet 12/15/2024 Active Encounters Date Type Department Care Team Description 12/21/[address] [address] Robbie Goodman PA 12/21/2024 Orders Only [address] [address] Robbie Goodman PA BV (bacterial vaginosis) (Primary Dx) 12/21/[address] [address] Robbie Goodman PA 12/19/[address] [address] Singh Blanc RN 12/19/2024 Orders Only [address] [address] Robbie Goodman PA BV (bacterial vaginosis) (Primary Dx); Trichomonas infection; Urinary tract infection associated with catheterization of urinary tract, unspecified indwelling urinary catheter type, initial encounter 12/18/2024 Results Follow-Up [address] [address] Singh Blanc RN 12/15/2024 1:50 PM EST Office Visit [address] [facility] [address] [place] [address] Gerber Pérez PA Urinary tract infection without [...] complete this topic Procedures * Due to [place] [employer] law, this organization might not be sharing negative HIV tests. Procedure Name Priority Date/Time Associated Diagnosis Comments NUSWAB VAGINITIS PLUS (VG+) - [facility] - [id number] Routine 12/15/2024 3:57 PM EST Dysuria POCT URINALYSIS DIPSTICK, NON-INTERFACED Routine 12/15/2024 2:06 PM EST Dysuria URINE CULTURE [id number] Routine 12/15/2024 1:00 PM EST URINE CULTURE, ROUTINE - [facility] - [id number] Routine 12/15/2024 1:00 PM EST Dysuria from Last 3 Months Results * Due to [place] [employer] law, this organization might not be sharing [...] [facility] - 12/17/2024 8:05 PM EST Test(s) 653751- ?Atopobium vaginae; 897428- ?BVAB 2; 991751- ?Megasphaera 1 was developed and its performance characteristics determined by [facility]. It has not been cleared or approved by the Food and Drug Administration. Test(s) 166713-Lsahliw albicans, CAIT; 121827-Romfvwq glabrata, CAIT was developed and its performance characteristics determined by [facility]. It has not been cleared or approved by the Food and Drug Administration. Performed at: ??01 - [facility] ??[id number] Clinical Assistant Professor: Bela Sommers MD, Phone: ??[phone] Gerber MEZA [facility] ORDERABLES Ave tijerina Result [facility] * (ABNORMAL) POCT Urinalysis Dipstick, Manual, non-interfaced (12/15/2024 2:06 PM EST) Pathologist [facility] Color, UA Yenny(A) Yellow Clarity, UA Clear [...] and trimethoprim-sulfamethoxazole are not effective clinically. (CLSI, Z490-I74, 2016) Enterococci susceptible to penicillin are predictably susceptible to ampicillin, amoxicillin, ampicillin-sulbactam, amoxicillin-clavulanate, and piperacillin-tazobactam for pge-iowe-vxicixbmv producing enterococci. (CLSI 2018) Linezolid ?S Result [...] PM EDT Performed at: ??01 - [facility] [address] ??[id number] Clinical Assistant Professor: Bela Sommers MD, Phone: ??[phone] Emiliroxy MEZA AMB [facility] ORDERABLES Ave l Result Performing Organization Address [facility]/ZIP Co de Phone Number [facility] * (ABNORMAL) Urine Culture, Routine (12/15/2024 1:00 PM EST) Urine Culture, Routine Final report(A) [facility] Urine Urine specimen collection, clean catch / Unknown 12/15/2024 1:00 PM EST 12/15/2024 Comment:UR Narrative [facility] - 12/21/2024 12:05 PM EDT Performed at: ??01 - [facility] [address] ??[id number] Clinical Assistant Professor: Bela Sommers MD, Phone: ??[phone] [facility] Elisa MEZA AMB [facility] ORDERABLES Ave l Result Performing Organization Address [facility] Co de Phone Number [facility] from Last 3 Months Insurance [facility] [place] HAQ [id number] Care Teams Curb Attendant Relationship Specialty Start Date End Date Tomás Albert [address] [place] [address] [place] [address] PCP - General Internal Medicine 04/24/23
--- NOTE | 2025-02-15 09:59 | AM.OFFWIN_ITS ---
Intake Vital Signs 02/15/25 10:08 Weight 197 lb BP 120/80 Blood Pressure Location Lt brachial Position Sitting Pulse 90 Pulse Source Pulse Oximeter Pulse Oximetry (%) 98 Oxygen Delivery Method Room Air Intake Visit Reasons: EP Pinched nerve/shoulder pain (car)[phone] Intake Note: Patient here Patient Tobacco Use Status: Never used Tobacco Allergies No Known Allergies Allergy (Verified 02/15/25 09:59) Do you need a note to return to daycare/school/sports/work: No HPI HPI Comments History of Present Illness Details The patient is a 34-year-old female presenting with right sided neck pain with radiation to the shoulder and elbow. The symptoms originated around two weeks ago without any identified trauma or specific event. The pain initiates in the neck and progresses down to the shoulder blades and further to the elbow, occasionally affecting her ring and middle fingers. The pain is exacerbated by certain movements and pressure, particularly when raising her arm or turning her head. She has trialed medications including diclofenac and cyclobenzaprine, which were ineffective aside from mild sedative effects. 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 - Onset: Approximately two weeks ago - Quality and Character: Described as oliva th shooting and dull, sometimes zapping in nature - Primary Location: Starts in the neck - Radiation: Extends to the shoulder donaldo ganesh, elbow, and occasionally to the ring and middle fingers - Exacerbating Factors: Raising the arm, head movements, pressure application - Relieving Factors: None identified - Activities and Functions Affected: Gen eral mobility, ability to comfortably adjust positions - Affect: Pain is significant enough to prompt a visit, although no specific mood disorder was reported. - Analgesia: Lack of significant relief from diclofenac and cyclobenzaprine - Adverse Effects: Cyclobenzaprine cause d drowsiness without pain relief - Activities of Daily Living: Difficulty due to pain, impacting general movement and comfort - Aberrant Drug-Related Behaviors: None reported [facility] Medical History (Updated 02/15/25 @ 11:02 by Chari Ignacio APRN, MAINTENANCE AND UTILITIES SUPERVISOR) Neck pain Obesity Panic disorder Depression Surgical History History of lumpectomy Family History Mother No problems noted. Father Cancer Social History Housing: Apartment Alcohol intake: never Patient Tobacco Use Status: Never used Tobacco e-Cigarette/Vaping Use: Never Used Second Hand Smoke Exposure: No service: No Current occupational status: employed Cognitive needs: No Hearing needs: No Vision needs: Yes Review of Systems Const Details: - Musculoskeletal: Reports neck and shoulder pain radiating to elbow and fingers - Nervous: Reports shooting and electrical sensations - General: Denies success with previous medication regimes Physical Exam Vital Signs: Last Vital Signs Pulse 90 02/15/25 10:08 BP 120/80 02/15/25 10:08 Pulse Ox 98 02/15/25 10:08 Oxygen Delivery Method Room Air 02/15/25 10:08 General: awake, alert, oriented. Answers questions appropriately. Fully engaged in examination. Skin: warm, dry, intact HEENT: Normocephalic. Hearing intact. Cardiac: External chest normal in appearance. Respiratory: No cough, audible wheezing or stridor. Abdomen: without gross distension. MS: No obvious swelling or deformities. Able to transition from sit to stand unassisted. Ambulates with bilaterally normal heel strike and toe off Cervical Spine: Visible inspection without gross abnormality Tenderness to palpation right middle trapezius Elvey test negative on right Nontender to palpation midline cervical vertebrae and cervical paraspinal muscles decreased cervical ROM BUE strength 5/5 Neurological: Oriented to person, place, time and situation. Thought process intact. No gait abnormalities appreciated. Psychiatric: Appropriate mood and affect. Good judgment and insight. Assessment & Plan Assessment & Plan (1) Trapezius muscle strain: Code(s): S46.819A - Strain of other muscles, fascia and tendons at shoulder and upper arm level, unspecified arm, initial encounter (2) Neck pain: Code(s): M54.2 - Cervicalgia Plan The patient will begin medication with Prednisone 40mg daily for inflammation over five days. Discontinue Cyclobenzaprine and start Methocarbamol 500mg po TID as needed. Patient advised on cautions for use. Continue with rest, ice, and seek alternative therapies like massage while coordinating for physical therapy via a primary care provider. Follow-up to reassess will be based on her response to these changes. I discussed with the patient the likelihood of a musculoskeletal condition, with possible nerve involvement. Discussed stopping current medications ineffective at reducing pain and initiated prednisone as another anti-inflammatory. Explained the short course of prednisone to reduce inflammation more effectively. Alternative therapies were advised, and physical therapy was recommended as a necessary follow-up, requiring coordination with a primary care provider. Possible future options may include referral for diagnostic imaging if symptoms persist or physical therapy is ineffective. Addressed and acknowledged patient concerns and emphasized the need for follow-up to assess response and adjust therapy as needed. Patient was informed and verbally consented to the use of an ambient scribe for clinic note documentation during this visit. Medications: New methocarbamol No driving while taking this medication. Do no take with alcohol or other [employer] Depressants 500 mg PO TID PRN 30 tabs 0RF muscle spasm prednisone 40 mg (2 x 20 mg) PO DAILY 10 tabs 0RF Discontinued cyclobenzaprine Discontinued Reason: Patient Completed Course 5 mg PO Q8H PRN 20 tabs 0RF Muscle Spasm Patient Instructions: - Stop using diclofenac and naproxen. - Begin a five-day course of prednisone. - Stop Cyclobenzaprine - Start Methocarbamol 500mg po TID as needed - Use ice and consider massage therapy for symptomatic relief. - Contact your primary care provider for physical therapy referral. - Follow instructions for any additional prescriptions provided today. - Return for evaluation if symptoms persist or worsen. - Avoid xzre-qsz-iubxpws anti-inflammatories other than those prescribed. Coding Level of Care Code Est Pt Level 3 (78656) Diagnoses Trapezius muscle strain S46.819A Neck pain M54.2
[2025-02-15 10:08] VITALS: BP 120/80; PULSE 90; O2SAT 98
== END 2025-02-15 10:47 | disposition home or self-care (01) ==
PROVIDERS: Visit Provider Registered Nurse Emergency
DX: S46.819A Strain of other muscles, fascia and tendons at shoulder and upper arm level, unspecified arm, initial encounter (principal); M54.2 Cervicalgia
CPT/HCPCS: 99213

== ENCOUNTER → 2025-02-15 09:12 | Outpatient (BNVA) | payer OTHER, MEDICAID, SELFPAY | PROVIDERS: Visit Provider Registered Nurse Emergency ==

== ENCOUNTER 2025-02-27 13:32 | Outpatient (AMB) | payer OTHER, MEDICAID, SELFPAY ==
--- OUTSIDE RECORDS SUMMARY | 2025-02-27 13:34 | XMS_ITS | Clinical Summary ---
Author Organization [facility] Address [address] [place] [address] Care Team Providers Care Supervisor Record Press Name Role Phone Tomás Albert Primary Care Provider [phone] Allergies No known active allergies Medications fluconazole (DIFLUCAN) 150 mg tablet Take 1 tablet (150 mg total) by mouth once a day. 2 tablet 12/15/2024 Active Encounters Date Type Department Care Team Description 12/21/[address] [address] Robbie Goodman PA 12/21/2024 Orders Only [address] [address] Robbie Goodman PA BV (bacterial vaginosis) (Primary Dx) 12/21/[address] [address] Robbie Goodman PA 12/19/[address] [address] Singh Blanc RN 12/19/2024 Orders Only [address] [address] Robbie Goodman PA BV (bacterial vaginosis) (Primary Dx); Trichomonas infection; Urinary tract infection associated with catheterization of urinary tract, unspecified indwelling urinary catheter type, initial encounter 12/18/2024 Results Follow-Up [address] [address] Singh Blanc RN 12/15/2024 1:50 PM EST Office Visit [address] [facility] [address] [place] [address] Gerber Pérez PA Urinary tract infection without [...] complete this topic Procedures * Due to [place] [employer] law, this organization might not be sharing negative HIV tests. Procedure Name Priority Date/Time Associated Diagnosis Comments NUSWAB VAGINITIS PLUS (VG+) - [facility] [place] - [id number] Routine 12/15/2024 3:57 PM EST Dysuria POCT URINALYSIS DIPSTICK, NON-INTERFACED Routine 12/15/2024 2:06 PM EST Dysuria URINE CULTURE [id number] Routine 12/15/2024 1:00 PM EST URINE CULTURE, ROUTINE - [facility] [place] - [id number] Routine 12/15/2024 1:00 PM EST Dysuria from Last 3 Months Results * Due to [place] [employer] law, this organization might not be sharing [...] [facility] - 12/17/2024 8:05 PM EST Test(s) 474472- ?Atopobium vaginae; 493994- ?BVAB 2; 000836- ?Megasphaera 1 was developed and its performance characteristics determined by [facility]. It has not been cleared or approved by the Food and Drug Administration. Test(s) 398699-Keextqe albicans, CAIT; 838253-Ibyjzpq glabrata, CAIT was developed and its performance characteristics determined by [facility]. It has not been cleared or approved by the Food and Drug Administration. Performed at: ??01 - [facility] ??[id number] Timber Treating Tank Operator: Bela Sommers MD, Phone: ??[phone] Gerber MEZA [facility] ORDERABLES Ave tijerina Result [facility] * (ABNORMAL) POCT Urinalysis Dipstick, Manual, non-interfaced (12/15/2024 2:06 PM EST) Pathologist [facility] Color, UA Yenny(A) Yellow Clarity, UA Clear [...] and trimethoprim-sulfamethoxazole are not effective clinically. (CLSI, M885-G64, 2016) Enterococci susceptible to penicillin are predictably susceptible to ampicillin, amoxicillin, ampicillin-sulbactam, amoxicillin-clavulanate, and piperacillin-tazobactam for byy-hrxb-hxjaitkba producing enterococci. (CLSI 2018) Linezolid ?S Result [...] PM EDT Performed at: ??01 - [facility] [address] ??[id number] [employer] Treating Tank Operator: Bela Sommers MD, Phone: ??[phone] Emiliroxy MEZA AMB [facility] ORDERABLES Ave l Result Performing Organization Address [facility]/ZIP Co de Phone Number [facility] * (ABNORMAL) Urine Culture, Routine (12/15/2024 1:00 PM EST) Urine Culture, Routine Final report(A) [facility]01 Urine Urine specimen collection, clean catch / Unknown 12/15/2024 1:00 PM EST 12/15/2024 Comment:UR Narrative [facility] - 12/21/2024 12:05 PM EDT Performed at: ??01 - [facility] [address] ??[id number] Tim[employer] Treating Tank Operator: Bela Sommers MD, Phone: ??[phone] [facility] Elisa MEZA AMB [facility] ORDERABLES Ave l Result Performing Organization Address [facility] Co de Phone Number [facility] from Last 3 Months Insurance [facility] [place] [id number] Care Teams Supervisor Record Press Relationship Specialty Start Date End Date Tomás Albert [address] [place] [address] [place] [address] PCP - General Internal Medicine 04/24/23
[2025-02-27 13:50] VITALS: BP 128/98; PULSE 99; RESP 16; TEMP 36.7; O2SAT 99; BMI 34.9
--- NOTE | 2025-02-27 13:50 | AM.OFFWIN_ITS ---
Intake Vital Signs 02/27/25 13:50 Height 5 ft 2 in Weight 191 lb BMI 34.9 BP 128/98 H Blood Pressure Location Lt brachial Position Sitting Respiration 16 Pulse 99 Pulse Source Pulse Oximeter Temp 98.0 F Temp Source Oral Pulse Oximetry (%) 99 Oxygen Delivery Method Room Air Intake Visit Reasons: EP-?uti Intake Note: Pt is here today burning upon urination and frequency Patient Tobacco Use Status: Never used Tobacco Allergies No Known Allergies Allergy (Verified 02/15/25 09:59) HPI HPI Comments History of Present Illness Details History of Present Illness - The patient is a 35-year-old female pr esenting with concern for a Urinary Tract Infection for 2d. - Symptoms include burning with urinatio n and frequent urination, though she denies a fever at this time. - She has a history of kidney stones (ne phrolithiasis). - Notable history of antibiotic use, as well as preventive use of Diflucan for yeast infections. - Reports mild low back discomfort and h ad menstruated recently, so difficult to tell if she has seen any blood in her urine. - Past episodes of infection often requi red antibiotic adjustment following urine culture. - We have no history of urine cultures Physical Exam General: Cooperative, healthy appearing, comfortable, no acute distress and well developed Orientation: Patient oriented x3 Limitations: No limitations Head: Normal to inspection Ears: Hearing grossly normal bilaterally Nose: Normal External nose present Face and sinus: Normal facial exam Eyes: Appearance normal, both eyes and all related structures Neck: Normal visual inspection and Yes full ROM Respiratory: Normal respiratory effort and able to speak in complete sentences. Skin: No rashes or lesions noted Neuro: Patient oriented x3 Extremities: Normal to inspection [facility] Medical History (Updated 02/27/25 @ 14:13 by Beatriz Reeves PA-C) Neck pain Obesity Panic disorder Depression Surgical History History of lumpectomy Family History Mother No problems noted. Father Cancer Social History Housing: Apartment Alcohol intake: never Patient Tobacco Use Status: Never used Tobacco e-Cigarette/Vaping Use: Never Used Second Hand Smoke Exposure: No service: No Current occupational status: employed Cognitive needs: No Hearing needs: No Vision needs: Yes Review of Systems Const All systems reviewed & are unremarkable except as noted in HPI and below Physical Exam Vital Signs: Last Vital Signs Temp 98.0 F 02/27/25 13:50 Pulse 99 02/27/25 13:50 Resp 16 02/27/25 13:50 BP 128/98 H 02/27/25 13:50 Pulse Ox 99 02/27/25 13:50 Oxygen Delivery Method Room Air 02/27/25 13:50 BMI result Body Mass Index 34.9 Results AMB Urinalysis, Automated UA Leukoctes 125 Erika/uL Last Edit by Mary Ann Hernandes CMA on 02/27/25 14:06 UA Nitrite Negative Last Edit by Mary Ann Hernandes, SANJEEV on 02/27/25 14:06 UA Urobilinogen 0.2 mg/dL Last Edit by Mary Ann Hernandes, SANJEEV on 02/27/25 14:06 UA Protein 0 mg/dL Last Edit by Mary Ann Hernandes, SANJEEV on 02/27/25 14:06 UA pH 6.0 Last Edit by Mary Ann Hernandes, SANJEEV on 02/27/25 14:06 UA Blood 80 Wu/uL Last Edit by Mary Ann Hernandes, SANJEEV on 02/27/25 14:06 UA Specific Manquin 1.030 Last Edit by Mary Ann Hernandes, SANJEEV on 02/27/25 14:06 UA Ketone Negative Last Edit by Mary Ann Hernandes, SANJEEV on 02/27/25 14:06 UA Bilirubin 0 mg/dL Last Edit by Mary Ann Hernandes, SANJEEV on 02/27/25 14:06 UA Glucose 0 mg/dL Last Edit by Mary Ann Hernandes, SANJEEV on 02/27/25 14:06 Results Reviewed Results Reviewed: Laboratory Last Values Urine pH (Auto) 6.0 02/27/25 14:04 Specific Manquin (Auto) 1.030 02/27/25 14:04 Urine Protein (Auto) 0 mg/dL 02/27/25 14:04 Glucose (UA)(Auto) 0 mg/dL 02/27/25 14:04 Urine Ketones (Auto) Negative 02/27/25 14:04 Urine Blood (Auto) 80 Wu/uL 02/27/25 14:04 Urine Nitrite (Auto) Negative 02/27/25 14:04 Urine Bilirubin (Auto) 0 mg/dL 02/27/25 14:04 Urine Urobilinogen (Auto) 0.2 mg/dL 02/27/25 14:04 Leukocyte Esterase (Auto) 125 Erika/uL 02/27/25 14:04 Assessment & Plan Assessment & Plan (1) UTI (urinary tract infection): Code(s): N39.0 - Urinary tract infection, site not specified Qualifiers: Urinary tract infection type: acute cystitis Hematuria presence: with hematuria Qualified Code(s): N30.01 - Acute cystitis with hematuria Plan: UA 2+ leuks, 2+ blood, neg nitrites. The patient presents with a suspected Urinary Tract Infection, and she will commence a course of cefuroxime. This treatment will be for five days, addressing infection and reducing associated urinary symptoms. A urine culture will be performed to confirm the suitability of the antibiotic, ready to adjust if necessary. To prevent yeast infections, two Diflucan tablets will be taken surrounding her antibiotic course. Drug interaction with fluconazole and hydroxyzene, and the patient knows she should avoid combining these medications inappropriately. She is informed to monitor for serious symptoms like fever or intensified pain, and advised to seek emergency care if these occur, reflecting possible nephrolithiasis complicat ions. Patient was informed and verbally consented to the use of an ambient scribe for clinic note documentation during this visit. Orders: Orders Urine Culture Today N39.0 - Urinary tract infection, site not specified AMB Urinalysis Automated Today Z13.9 - Encounter for screening, unspecified Medications: New fluconazole may repeat second dose 72 hrs after first dose if symptoms persist 150 mg PO Q3D 2 tabs 0RF cefuroxime axetil 500 mg PO Q12H 10 tabs 0RF Coding Level of Care Code Est Pt Level 3 (31993) Diagnoses Acute cystitis with hematuria N30.01 Urinary tract infection type: acute cystitis Hematuria presence: with hematuria
== END 2025-02-27 14:34 | disposition home or self-care (01) ==
PROVIDERS: Visit Provider Physician Assistant
DX: N30.01 Acute cystitis with hematuria (principal); Z13.9 Encounter for screening, unspecified

== ENCOUNTER 2025-02-27 13:32 | Outpatient (REF) | payer OTHER, MEDICAID, SELFPAY | END 2025-02-27 13:33 | disposition home or self-care (01) | LOC: HO.LAB 13:32 | DX: N30.01 Acute cystitis with hematuria (principal) | CPT/HCPCS: 81003; 87086; 87147 ==

== ENCOUNTER 2025-03-11 08:24 | Outpatient (AMB) | payer OTHER, MEDICAID, SELFPAY ==
--- OUTSIDE RECORDS SUMMARY | 2025-03-11 08:34 | XMS_ITS | Referral Summary ---
Author Organization [facility] Address [address] [place] [address] Care Team Providers Care Grant Manager Name Role Phone Tomás Albert Primary Care Provider [phone] Encounters Date Type Department Care Team Description 12/21/[address] [address] Robbie Goodman PA 12/21/2024 Orders Only [address] [address] Robbie Goodman PA BV (bacterial vaginosis) (Primary Dx) 12/21/[address] [address] Robbie Goodman PA 12/19/[address] [address] Singh Blanc RN 12/19/2024 Orders Only [address] [address] Robbie Goodman PA BV (bacterial vaginosis) (Primary Dx); Trichomonas infection; Urinary tract infection associated with catheterization of urinary tract, unspecified indwelling urinary catheter type, initial encounter 12/18/2024 Results Follow-Up [address] [address] Singh Blanc, LOVE 12/15/2024 1:50 PM EST Office Visit [address] [place] [address] Gerber Pérez PA Urinary tract infection without [...] Not on file Procedures * Due to [place] [employer] law, this organization might not be sharing negative HIV tests. Procedure Name Priority Date/Time Associated Diagnosis Comments NUSWAB VAGINITIS PLUS (VG+) - [facility] - [id number] Routine 12/15/2024 3:57 PM EST Dysuria POCT URINALYSIS DIPSTICK, NON-INTERFACED Routine 12/15/2024 2:06 PM EST Dysuria URINE CULTURE [id number] Routine 12/15/2024 1:00 PM EST URINE CULTURE, ROUTINE - [facility] - [id number] Routine 12/15/2024 1:00 PM EST Dysuria from Last 3 Months Results * Due to [place] [employer] law, this organization might not be sharing [...] [facility] - 12/17/2024 8:05 PM EST Test(s) 041170- ?Atopobium vaginae; 372360- ?BVAB 2; 937797- ?Megasphaera 1 was developed and its performance characteristics determined by [facility]. It has not been cleared or approved by the Food and Drug Administration. Test(s) 332762-Yprdsur albicans, CAIT; 025253-Xqokozr glabrata, CAIT was developed and its performance characteristics determined by [facility]. It has not been cleared or approved by the Food and Drug Administration. Performed at: ??01 - [facility] [address] ??[id number] Parking Lot Spotter: Bela Sommers MD, Phone: ??[phone] us Gerber BENDER [facility] ORDERABLES Ave l [...] and trimethoprim-sulfamethoxazole are not effective clinically. (CLSI, J318-Q23, 2016) Enterococci susceptible to penicillin are predictably susceptible to ampicillin, amoxicillin, ampicillin-sulbactam, amoxicillin-clavulanate, and piperacillin-tazobactam for bta-fthj-wyxxnxiod producing enterococci. (CLSI 2018) Linezolid ?S Result [...] Performed at: ??01 - [facility] [address] [place], [place] ??[id number] Parking Lot Spotter: Bela Sommers MD, Phone: ??[phone] us Gerber MEZA AMB [facility] ORDERABLES Ave l Result [facility] * (ABNORMAL) Urine Culture, Routine (12/15/2024 1:00 PM EST) Urine Culture, Routine Final report(A) [facility]01 Urine Urine specimen collection, clean catch / Unknown 12/15/2024 1:00 PM EST 12/15/2024 Comment:UR Narrative [facility] - 12/21/2024 12:05 PM EDT Performed at: ??01 - [facility] [address] [facility] [place] ??[id number] Parking Lot Spotter: Bela Sommers MD, Phone: ??[phone] us Gerber MEZA AMB [facility] ORDERABLES Ave breezy Result [facility] from Last 3 Months Insurance [facility] Care Teams Grant Manager Relationship Specialty Start Date End Date Tomás Albert [address] [place] [address] [place] [address] PCP - General Internal Medicine 04/24/23
[2025-03-11 08:37] VITALS: BP 132/82; PULSE 110; TEMP 36.7; O2SAT 98; BMI 34.9
--- NOTE | 2025-03-11 08:37 | AM.OFFWIN_ITS ---
Intake Vital Signs 03/11/25 08:37 Height 5 ft 2 in Weight 191 lb BMI 34.9 BP 132/82 Blood Pressure Location Rt brachial Position Sitting Pulse 110 H Pulse Source Pulse Oximeter Temp 98.1 F Temp Source Oral Pulse Oximetry (%) 98 Intake Visit Reasons: EP ? ear & throat infection Patient Tobacco Use Status: Never used Tobacco Allergies No Known Allergies Allergy (Verified 03/11/25 08:37) Do you need a note to return to daycare/school/sports/work: Yes HPI HPI Comments History of Present Illness Details History - The patient is a 35-year-old female pr esenting with ear pain, throat pain, and cough. - She reports ear pain and throat discom fort onset recently, with a cough persisting for two days. - The patient describes mild chest tight ness related to her asthma, noting occasional shortness of breath and mild wheezing but has not been using her inhaler. - She experienced fever peaking at 102?F . - She observes mild sinus pain and signi ficant ear congestion, particularly affecting the right ear. - The patient has not taken any medicati on for these symptoms. - Her daughter has also reported throat pain. Physical Exam General: Cooperative, healthy appearing, comfortable and no acute distress Orientation/consciousness: Patient oriented x3 Limitations: No limitations Head: Normal to inspection Ears: Hearing grossly normal bilaterally, external ears normal and TM's with erythema on left; purulence, loss of landmarks and exudate on right Nose: Normal external nose present, Normal nares present and No nasal discharge present Face and sinus: Normal facial exam and Yes frontal sinuses tender Mouth: Normal oral and palatal mucosa present and moist mucous membranes Throat: Yes tonsils normal, Yes uvula midline. Posterior oropharynx erythema Eyes: Appearance normal, both eyes and all related structures Neck: Normal visual inspection Respiratory: Clear to auscultation bilaterally. Normal respiratory effort, able to speak in complete sentences, Actively coughing, no respiratory distress, not tachypneic, no tripod positioning and no use of accessory muscles Cardiovascular: tachycardic rate and rhythm. Normal S1 and S2 Skin: No rashes or lesions noted Neuro: Patient oriented x3 Extremities: Normal to inspection and Yes no clubbing, cyanosis or edema PFSH Medical History (Updated 03/11/25 @ 09:06 by Beatriz Reeves PA-C) Neck pain Obesity Panic disorder Depression Surgical History History of lumpectomy Family History Mother No problems noted. Father Cancer Social History Housing: Apartment Alcohol intake: never Patient Tobacco Use Status: Never used Tobacco e-Cigarette/Vaping Use: Never Used Second Hand Smoke Exposure: No service: No Current occupational status: employed Cognitive needs: No Hearing needs: No Vision needs: Yes Review of Systems Const All systems reviewed & are unremarkable except as noted in HPI and below Physical Exam Vital Signs: Last Vital Signs Temp 98.1 F 03/11/25 08:37 Pulse 110 H 03/11/25 08:37 BP 132/82 03/11/25 08:37 Pulse Ox 98 03/11/25 08:37 BMI result Body Mass Index 34.9 Assessment & Plan Assessment & Plan (1) Strep pharyngitis: Code(s): J02.0 - Streptococcal pharyngitis Plan: VSS, pt well appearing and PE remarkable for posterior oropharynx erythema and OM right side. The patient has been prescribed amoxicillin for the treatment of Acute Otitis Media and Streptococcal Pharyngitis, understanding the importance of completing the antibiotic course. An inhaler has been provided to manage asthma-related symptoms. The prescriptions have been sent to [facility] on [address]. The patient has been advised to monitor symptoms and seek further evaluation if necessary. Additionally, she is informed to observe her daughter for similar symptoms, given the potential transmission risk of Streptococcal Pharyngitis. Patient was informed and verbally consented to the use of an ambient scribe for clinic note documentation during this visit Medications: New albuterol sulfate 90 mcg/actuation 2 puffs inhalation Q6H PRN 8.5 grams 0RF shortness of breath or wheezing or cough amoxicillin 500 mg PO Q12H 20 tabs 0RF Discontinued albuterol sulfate 90 mcg/actuation Discontinued Reason: Doctor's Order 1 inh inhalation QID PRN 6.7 grams 1RF shortness of breath or wheezing Coding Level of Care Code Est Pt Level 4 (51363) Diagnoses Strep pharyngitis J02.0
== END 2025-03-11 09:21 | disposition home or self-care (01) ==
PROVIDERS: Visit Provider Physician Assistant
DX: J02.0 Streptococcal pharyngitis (principal)

== ENCOUNTER → 2025-03-11 08:24 | Outpatient (BNVA) | payer OTHER, MEDICAID, SELFPAY | PROVIDERS: Visit Provider Physician Assistant | DX: Z13.89 Encounter for screening for other disorder (principal) ==

== ENCOUNTER 2025-03-17 09:11 | Outpatient (AMB) | payer OTHER, MEDICAID, SELFPAY ==
[2025-03-17 09:15] VITALS: BP 102/80; PULSE 91; TEMP 36.6; O2SAT 98; BMI 35.5
--- NOTE | 2025-03-17 09:15 | MHC.OFFWIV ---
Intake Vital Signs 03/17/25 09:15 Height 5 ft 2 in Weight 194 lb BMI 35.5 BP 102/80 Blood Pressure Location Rt brachial Position Sitting Pulse 91 Pulse Source Pulse Oximeter Temp 97.8 F Temp Source Oral Pulse Oximetry (%) 98 Oxygen Delivery Method Room Air Intake Visit Reasons: EP Ear infection, difficulty swallowing still Intake Note: Pt is here today c/o bilateral ear pain and difficulty swallowing: Pt was seen here at our walkin on 03/11/25 with no improvement: hasn't finish abx Patient Tobacco Use Status: Never used Tobacco Allergies No Known Allergies Allergy (Verified 03/17/25 09:18) HPI HPI Comments History of Present Illness Details History of Present Illness The patient is a 35-year-old female presenting with worsening ear pain and sore throat despite antibiotic treatment. She was seen here last week on 03/11 for the same. She reports a recent diagnosis of acute otitis media and streptococcal pharyngitis last week, having been treated with amoxicillin 500 mg but is experiencing increased ear pain and pain with swallowing. She has experienced ongoing fevers, including last night, and noted the antibiotics seem ineffective. This year, she has had recurrent urinary tract infections and ear infections, with concern over the diminishing effect of antibiotics. The patient did not have ear drops for this episode and has denied any cough, vomiting, or diarrhea. She is eating and drinking. She denies smoking, sick contacts, [place], cough, CP, SOB, abd pain, n/v/d. Physical Exam General: Cooperative, healthy appearing, comfortable, no acute distress and well developed Ears: Hearing grossly normal bilaterally. Erythema noted in the canals bilaterally. Nose: Normal external nose present Face and sinus: Normal facial exam. No sinus tenderness noted. Throat: Erythema noted with no exudates on the pharynx. Uvula is midline noted. Neck: Normal visual inspection and Yes full ROM. N0 lymphadenopathy noted. Respiratory: Normal respiratory effort and able to speak in complete sentences. Clear to auscultation bilaterally Cardiovascular: Regular rate and rhythm. Normal S1 and S2 Skin: No rashes or lesions noted Patient was informed and verbally consented to the use of an ambient scribe for clinic note documentation during this visit. FORMERLY [facility], [facility]1983 Medical History (Updated 03/17/25 @ 10:09 by Khloe Mckeon PA-C) Neck pain Obesity Panic disorder Depression Surgical History History of lumpectomy Family History Mother No problems noted. Father Cancer Social History Housing: Apartment Alcohol intake: never Patient Tobacco Use Status: Never used Tobacco e-Cigarette/Vaping Use: Never Used Second Hand Smoke Exposure: No service: No Current occupational status: employed Cognitive needs: No Hearing needs: No Vision needs: Yes Review of Systems Const All systems reviewed & are unremarkable except as noted in HPI and below Physical Exam Vital Signs: Last Vital Signs Temp 97.8 F 03/17/25 09:15 Pulse 91 03/17/25 09:15 BP 102/80 03/17/25 09:15 Pulse Ox 98 03/17/25 09:15 Oxygen Delivery Method Room Air 03/17/25 09:15 BMI result Body Mass Index 35.5 Results AMB Rapid Strep AMB Rapid Strep Negative Last Edit by Mary Ann Hernandes CMA on 03/17/25 09:48 Results Reviewed Results Reviewed: Laboratory Last Values Strep Scn Rapid Clinic Negative 03/17/25 09:37 Assessment & Plan Assessment & Plan (1) Otitis media: Code(s): H66.90 - Otitis media, unspecified, unspecified ear Qualifiers: Chronicity: acute Laterality: bilateral Otitis media type: suppurative Recurrence: non-recurrent Spontaneous tympanic membrane rupture: without spontaneous rupture Qualified Code(s): H66.003 - Acute suppurative otitis media without spontaneous rupture of ear drum, bilateral Plan: see below (2) Sore throat: Code(s): J02.9 - Acute pharyngitis, unspecified Plan: Most likely strep vs OM vs viral illness Rapid in the office was negative Plan -I will perform a rapid strep test to document persistence of infection. -Given the lack of therapeutic response to amoxicillin and her history of recurrent infections, I will prescribe a more potent antibiotic to address her acute otitis media and streptococcal pharyngitis. -I will prescribe her Doxycycline 100 mg BID for 10 days -Prednisone ear drops will be provided for symptom relief. -A close monitoring strategy will be implemented to observe changes in symptomatology, especially addressing fever and pain. The patient should continue to use antipyretics for fever control as needed. Orders: Orders AMB Rapid Strep Screen Today Z13.9 - Encounter for screening, unspecified Medications: New doxycycline hyclate 100 mg PO BID 10 days 20 caps 0RF prednisolone sodium phosphate 1% 1 drp ophthalmic (eye) BID 7 days 10 mL 0RF Coding Level of Care Code Est Pt Level 3 (08506) Diagnoses Non-recurrent acute suppurative otitis media of both ears without spontaneous rupture of tympanic membranes H66.003 Chronicity: acute Laterality: bilateral Otitis media type: suppurative Recurrence: non-recurrent Spontaneous tympanic membrane rupture: without spontaneous rupture Sore throat J02.9
--- OUTSIDE RECORDS SUMMARY | 2025-03-17 09:32 | XMS_ITS | Referral Summary ---
Author Organization [facility] Address [address] [place] [address] Care Team Providers Care Marketing Support Coordinator Name Role Phone Tomás Albert Primary Care Provider [phone] Encounters Date Type Department Care Team Description 12/21/[address] [address] Robbie Goodman PA 12/21/2024 Orders Only [address] [address] Robbie Goodman PA BV (bacterial vaginosis) (Primary Dx) 12/21/[address] [address] Robbie Goodman PA 12/19/[address] [address] Singh Blanc RN 12/19/2024 Orders Only [address] [address] Robbie Goodman PA BV (bacterial vaginosis) (Primary Dx); Trichomonas infection; Urinary tract infection associated with catheterization of urinary tract, unspecified indwelling urinary catheter type, initial encounter 12/18/2024 Results Follow-Up [address] [address] Singh Blanc, LOVE 12/15/2024 1:50 PM EST Office Visit [address] [place] [address] Gerber Pérez PA Urinary tract infection without [...] Not on file Procedures * Due to [place] [employer] law, this organization might not be sharing negative HIV tests. Procedure Name Priority Date/Time Associated Diagnosis Comments NUSWAB VAGINITIS PLUS (VG+) - [facility] - [id number] Routine 12/15/2024 3:57 PM EST Dysuria POCT URINALYSIS DIPSTICK, NON-INTERFACED Routine 12/15/2024 2:06 PM EST Dysuria URINE CULTURE [id number] Routine 12/15/2024 1:00 PM EST URINE CULTURE, ROUTINE - [facility] - [id number] Routine 12/15/2024 1:00 PM EST Dysuria from Last 3 Months Results * Due to [place] [employer] law, this organization might not be sharing [...] [facility] - 12/17/2024 8:05 PM EST Test(s) 802616- ?Atopobium vaginae; 694163- ?BVAB 2; 193691- ?Megasphaera 1 was developed and its performance characteristics determined by [facility]. It has not been cleared or approved by the Food and Drug Administration. Test(s) 167984-Joravug albicans, CAIT; 684509-Kcwndst glabrata, CAIT was developed and its performance characteristics determined by [facility]. It has not been cleared or approved by the Food and Drug Administration. Performed at: ??01 - [facility] [address] ??[id number] Stock Cutter: Bela Sommers MD, Phone: ??[phone] us Gerber BENDER [facility] ORDERABLES Ave l [...] and trimethoprim-sulfamethoxazole are not effective clinically. (CLSI, I221-A51, 2016) Enterococci susceptible to penicillin are predictably susceptible to ampicillin, amoxicillin, ampicillin-sulbactam, amoxicillin-clavulanate, and piperacillin-tazobactam for [id number]-eoglnnlsi producing enterococci. (CLSI 2018) Linezolid ?S Result [...] Performed at: ??01 - [facility] [address] [place], [place] ??[id number] Stock Cutter: Bela Sommers MD, Phone: ??[phone] us Gerber MEZA AMB [facility] ORDERABLES Ave l Result [facility] * (ABNORMAL) Urine Culture, Routine (12/15/2024 1:00 PM EST) Urine Culture, Routine Final report(A) [facility] Urine Urine specimen collection, clean catch / Unknown 12/15/2024 1:00 PM EST 12/15/2024 Comment:UR Narrative [facility] - 12/21/2024 12:05 PM EDT Performed at: ??01 - [facility] [address] [facility] [place] ??[id number] Stock Cutter: Bela Sommers MD, Phone: ??[phone] us Gerber MEZA AMB [facility] ORDERABLES Ave breezy Result [facility] from Last 3 Months Insurance [facility] Care Teams Marketing Support Coordinator Relationship Specialty Start Date End Date Tomás Albert [address] [place] [address] [place] [address] PCP - General Internal Medicine 04/24/23
== END 2025-03-17 10:08 | disposition home or self-care (01) ==
PROVIDERS: Visit Provider Physician Assistant Medical
DX: H66.003 Acute suppurative otitis media without spontaneous rupture of ear drum, bilateral (principal); J02.9 Acute pharyngitis, unspecified

== ENCOUNTER → 2025-03-17 09:11 | Outpatient (BNVA) | payer OTHER, MEDICAID, SELFPAY | PROVIDERS: Visit Provider Physician Assistant Medical | DX: H66.003 Acute suppurative otitis media without spontaneous rupture of ear drum, bilateral (principal); J02.9 Acute pharyngitis, unspecified; Z87.440 Personal history of urinary (tract) infections | CPT/HCPCS: 87880 ==

== ENCOUNTER 2025-04-05 15:02 | Outpatient (AMB) | payer OTHER, MEDICAID, SELFPAY ==
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
[2025-04-05 15:13] VITALS: BP 120/72; PULSE 87; TEMP 36.2; O2SAT 100; BMI 34.3
--- OUTSIDE RECORDS SUMMARY | 2025-04-05 16:35 | XMS_ITS | Referral Summary ---
Author Organization [facility] Address [address] [place] [address] Care Team Providers Care Mastic Floor Layer Name Role Phone Tomás Albert Primary Care Provider [phone] Allergies No known active allergies Medications fluconazole [...] 90 12/15/2024 1:45 PM EST Temperature 36.1 C (97 F) 12/15/2024 1:45 PM EST Respiratory Rate 16 04/24/2023 11:25 PM EDT Oxygen Saturation 97% 12/15/2024 1:45 PM EST Inhaled Oxygen Concentration - - Weight 93.1 kg (205 lb 3.2 oz) 04/24/2023 11:25 PM EDT Height 157.5 cm (5' 2 ) 04/24/2023 11:25 PM EDT Body Mass Index 37.53 04/24/2023 11:25 PM EDT Plan of Treatment Not on file [facility] [place] [id number] Care Teams Mastic Floor Layer Relationship Specialty Start Date End Date Tomás Albert [address] [place] [address] [place] [address] PCP - General Internal Medicine 04/24/23
== END 2025-04-05 15:50 | disposition home or self-care (01) ==
DX: Z00.00 Encounter for general adult medical examination without abnormal findings (principal); Z34.90 Encounter for supervision of normal pregnancy, unspecified, unspecified trimester

== ENCOUNTER → 2025-04-05 15:02 | Outpatient (BNVA) | payer OTHER, MEDICAID, SELFPAY | DX: Z13.89 Encounter for screening for other disorder (principal) ==

== ENCOUNTER 2025-06-02 14:20 | Outpatient (AMB) | payer OTHER, MEDICAID, SELFPAY ==
[2025-06-02 14:57] VITALS: BP 106/78; PULSE 96; TEMP 37; O2SAT 99; BMI 35.1
--- NOTE | 2025-06-02 14:57 | AM.OFFWIN_ITS ---
Intake Vital Signs 06/02/25 14:57 Height 5 ft 2 in Weight 192 lb BMI 35.1 BP 106/78 Blood Pressure Location Lt brachial Position Sitting Pulse 96 Pulse Source Pulse Oximeter Temp 98.6 F Temp Source Oral Pulse Oximetry (%) 99 Oxygen Delivery Method Room Air Intake Visit Reasons: ep ear infection Intake Note: presents with bilateral ear pain RT >LT Patient Tobacco Use Status: Never used Tobacco Allergies No Known Allergies Allergy (Verified 06/02/25 15:01) HPI HPI Comments History of Present Illness Details History of Present Illness - The patient is a 35-year-old female pr esenting with ear pain. - The ear pain began a couple of days ag o, affecting the right ear. - The patient reports no associated symp toms such as sore throat, headache, cough, fever, congestion, or ear drainage. - Analgesics such as Tylenol and Motrin have been ineffective in alleviating the pain. - The patient has no history of allergie s and has not used decongestants. - She has not tried anything for the huan n. Physical Exam General: Cooperative, healthy appearing, comfortable, no acute distress and well developed Orientation: Patient oriented x3 Limitations: No limitations Head: Normal to inspection Ears: Hearing grossly normal bilaterally. No tragus or mastoid tenderness noted. No discharge or erythema noted in the canal bilaterally. TM is normal, no bulging, or loss of bony landmarks. Nose: Normal external nose present Face and sinus: Normal facial exam Eyes: Appearance normal, both eyes and all related structures Neck: Normal visual inspection and Yes full ROM Respiratory: Normal respiratory effort and able to speak in complete sentences. Clear to auscultation bilaterally Cardiovascular: Regular rate and rhythm. Normal S1 and S2 Patient was informed and verbally consented to the use of an ambient scribe for clinic note documentation during this visit. [facility] Medical History Neck pain Obesity Panic disorder Depression Surgical History History of lumpectomy Family History Mother No problems noted. Father Cancer Social History Housing: Apartment Alcohol intake: never Patient Tobacco Use Status: Never used Tobacco e-Cigarette/Vaping Use: Never Used Second Hand Smoke Exposure: No service: No Current occupational status: employed Cognitive needs: No Hearing needs: No Vision needs: Yes Review of Systems Const All systems reviewed & are unremarkable except as noted in HPI and below Physical Exam Vital Signs: Last Vital Signs Temp 98.6 F 06/02/25 14:57 Pulse 96 06/02/25 14:57 BP 106/78 06/02/25 14:57 Pulse Ox 99 06/02/25 14:57 Oxygen Delivery Method Room Air 06/02/25 14:57 BMI result Body Mass Index 35.1 Assessment & Plan Assessment & Plan (1) Ear pain, right: Code(s): H92.01 - Otalgia, right ear Plan Most likely OM vs OE vs effusion vs ET dysfunction Plan - Prescribe a decongestant to address ear pain and pressure. - Advise continuation of Tylenol and Motrin for pain relief. - Instruct the patient to avoid getting any fluid in the ear and to refrain from using Q-tips. - Recommend follow-up if symptoms persist or worsen despite treatment. Medications: New cetirizine-pseudoephedrine 5-120 mg ER 1 tab PO BID 14 tabs 0RF 7 days Coding Level of Care Code Est Pt Level 3 (10660) Diagnoses Ear pain, right H92.01
--- OUTSIDE RECORDS SUMMARY | 2025-06-02 15:19 | XMS_ITS | Clinical Summary ---
Author Organization [facility] Address [address] [place] [address] Care Team Providers Care Specialty Cook Name Role Phone Tomás Albert Primary Care Provider [phone] Allergies No known active allergies Medications fluconazole [...] of Health Annual Screening 10/14/2024 Influenza Vaccine (#1) 2025 RSV Vaccine (60+ years old and patients) (1 - 1-dose 75+ series) 2066 Pneumococcal Vaccine: Pediatric (0-5 Years) and At-Risk Patients (6-50 Years) Aged Out No longer eligible based on patient's age to complete this topic Insurance [facility] [id number] Care Teams Specialty Cook Relationship Specialty Start Date End Date Tomás Albert [address] [place] [address] [place] [address] PCP - General Internal Medicine 04/24/23
--- OUTSIDE RECORDS SUMMARY | 2025-06-02 15:20 | XMS_ITS | Patient Health Record ---
Author Organization [facility] Address [address] [place] [address] Care Team Providers Care Tennis Net Maker Name Role Phone Peace Santiago Unavailable [phone] Allergies No Known Allergies Reason For Referral No Information Medications Medication SIG (Take, Route, Frequency, Duration) Notes Start Date End Date Status DULoxetine HCl 40 MG 1 capsule Orally On ce a day; Duration: 30 day(s) 1 BID 05/20/2025 Active buPROPion HCl ER (XL) 150 MG 1 tablet in the morning Orally Once a day; Duration: 30 day(s) 05/20/2025 Active Social History Tobacco use other than smoking: Question Answer Notes Are you an other tobacco user? No Problems Problem Type SNOMED Code ICD Code Onset Dates Problem Status W/U Status Risk Notes Problem Anxiety (87103161) Anxiety (F41.9) Active confirmed Problem Obese class II (193319277046259 ) BMI 35.0-35.9,adult (Z68.35) Active confirmed Problem Avitaminosis D (32852661) Avitaminosis D (E55.9) Active confirmed Problem Obesity (823429828) Obesity (E66.9) Active confirmed Vital Signs Heart Rate 69 /min 05/20/2025 Respiratory Rate 16 /min 05/20/2025 Oximetry 98 % 05/20/2025 Blood pressure diastolic 76 mm Hg 05/20/2025 Height 63 in 05/20/2025 Blood pressure systolic 128 mm Hg 05/20/2025 Weight 194.1 lbs 05/20/2025 BMI 34.38 kg/m2 05/20/2025 Encounters Encounter Location Date Provider Diagnosis [facility] [id number] [address] 05/20/2025 Peace Svrcek Obesity E66.9 ; BMI 35.0-35.9,adult Z68.35 ; Anxiety F41.9 ; Depression F32.A ; Encounter for weight loss counseling Z71.3 and Encounter for examination of blood pressure without abnormal findings Z01.30 [facility] [address] [address] 05/25/2025 Peace Santiago Assessments Encounter Date Diagnosis (ICD Code) Assessment Notes Treatment Notes Treatment Clinical Notes Section Notes 05/20/2025 BMI 35.0-35.9,adul t (ICD-10 - Z68.35) #Obesity. 194.1 pounds, BMI 34.4. New patient welcome to the practice today. Seca scale results reviewed in detail with patient. Discussed medical weight loss options in detail. Given her anxiety she is not a great candidate for phentermine. She is already on Wellbutrin therefore Contrave is not an option. Is interested in Zepbound. Reviewed risk benefits adverse effects of medication in detail with patient. There is a family history of thyroid cancer in her father. I have asked her to get further information into this specific type prior to prescribing. Discussed risk associated with family history of medullary thyroid cancer. Once we have confirmation we will send prescription for Zepbound 2.5 mg however we will start the process for PA at this time. Importance of lifestyle modifications including higher protein diet with a goal of 80 to 100 g a day. Also discussed the importance of consistent exercise including resistance training. Encouraged to add probiotic daily. Will also start GÓMEZ injections monthly. Will plan to get comprehensive labs and review at follow-up visit in 1 month. #Anxiety/depression. Controlled on current regimen. Weight Consult Plan: Patient has been found to be obese with a BMI of 34.4. Patient has class 1 obesity. Patient was reassured and welcomed to the practice. We discussed that we stress a hollistic medical approach with emphasis on lifestyle modification. Patient was informed that a healthy lifestyle with exercise and good eating habits can help reduce his risk of medical complications. He is explained that obesity increases his risk of diabetes, cardiovascular disease, or organ damage. We spent a lot of time discussing the relationship between food, exercise, sleep, mental health and obesity. Patient was counseled on the importance EATING local, organic food when possible. Patient was educated on clean 15 and dirty dozen. I provided information about reading books called The Food Rules by Feliciano Chopra and Eat Fat Get Lean by Dr Jason Ellison. Self education is important in the journey for weight management. Patient was offered diagnostic testing. We want to measure visceral adiposity, advanced body composition, adverse lipids, fatty acid balance, risk for heart disease and atherosclerosis, markers of inflammation and genetic susceptibility. Patient was counseled on weight management and was advised to lose weight using B. Lifestyle management which includes several strategies as below 1. Eat a low carbohydrate good fat good protein diet. Eliminate refined carbohydrates from the diet. Continue blood sugar and sugared beverages. Eat local organic when possible. Cook your own meals. Read food labels. None about healthy snacks. Portion control and food with low glycemic index 2. Exercise regularly. Try to get at least 6000 steps a day. Use a predominant to track activity level. Consider using apps like 99Bill, SendMeHome.compal, lose it, stick as needed for self-monitoring and weight management. Consider group exercises. Consider hiring a personal clothing laundry aide. Regular exercise is crawford to sustainable health and prevents as a buffer against weight regain 3. Sleep is most important for healing. Tried to sleep at least 8 hours a night. A good quality sleep needs a sleep ritual with ideal room temperature of around 68. It might help to take a shower and have no electronics in the room and sleep in a very dark room without artificial light. Start her sleep routine and get up early in the morning and go to bed on time 4. Make a social connection. Surround yourself with positive people with positive energy. Connect with friends and family. 5. Get into the habit of meditating and mindfulness while doing everything. 6. Go outside and connect with nature. C. Prescription medications Patient was educated on the use of prescription medications for medical weight loss. This is a growing list and includes phentermine, Topamax,Qsymia, contrave, belviq and saxenda. All prescription medications could have side effects including but not limited to kidney stones, seizure disorder cardiac arrhythmias heart attack pancreatitis etc. etc.. Patient was encouraged to read the prescription insert and have coaching with their pharmacist and make an informed decision about taking medication and know that these medications are being prescribed with good intentions and we do not know how a patient would react to her medication. Sudden medications are FDA approved for weight loss and there is also off label use depending on patient's inability to afford medications in an attempt to lose weight D. Behavioral counseling was done to establish a relationship between food and an mood. Patient was provided information about local counseling and psychiatry and Dr Maloney at [employer] [facility]. We would like to cover regular topics and build on low glycemic eating exercise mindful eating, using yoga and meditation along with deep breathing and connecting with friends and family. E. MASS PAT reviewed, Patient's current medications were reviewed and opinion was given on medication that can cause weight gain and can be substituted F. Patient was assessed for risk with obesity including and not limiting to atherosclerosis heart disease stroke kidney disease, restrictive lung disease, irritable bowel syndrome and overall mortality. Risk of developing prediabetes diabetes and metabolic syndrome was discussed G. Therapeutic plan: We have decided to make therapeutic plan which would include choosing wisely on calories restricting portion getting active, tracking weight, getting good quality sleep and working on time management H. Patient will follow up in (4) weeks for weight management Total time spent today was 60 minutes of which greater than 50% was spent on coordinating and counseling Case discussed with collaborating physician Trupti Whitt who reviewed the assessment and plan. Chart, medications, labs, vital signs reviewed. Dictation was accomplished with the use of Allocade voice recognition software, prone to medical misidentifications and grammatical errors. This is unintentional and the practitioner does try to identify and correct these, but some could still be present. Please do not hesitate to contact practitioner for clarification. All questions answered to patients satisfaction. Patient verbalized understanding of diagnosis and treatments explained. To call sooner prior to next visit it any questions/concerns arise. 05/20/2025 Obesity (ICD-10 - E66.9) #Obesity. 194.1 pounds, BMI 34.4. New patient welcome to the practice today. Seca scale results reviewed in detail with patient. Discussed medical weight loss options in detail. Given her anxiety she is not a great candidate for phentermine. She is already on Wellbutrin therefore Contrave is not an option. Is interested in Zepbound. Reviewed risk benefits adverse effects of medication in detail with patient. There is a family history of thyroid cancer in her father. I have asked her to get further information into this specific type prior to prescribing. Discussed risk associated with family history of medullary thyroid cancer. Once we have confirmation we will send prescription for Zepbound 2.5 mg however we will start the process for PA at this time. Importance of lifestyle modifications including higher protein diet with a goal of 80 to 100 g a day. Also discussed the importance of consistent exercise including resistance training. Encouraged to add probiotic daily. Will also start GÓMEZ injections monthly. Will plan to get comprehensive labs and review at follow-up visit in 1 month. #Anxiety/depression. Controlled on current regimen. Weight Consult Plan: Patient has been found to be obese with a BMI of 34.4. Patient has class 1 obesity. Patient was reassured and welcomed to the practice. We discussed that we stress a hollistic medical approach with emphasis on lifestyle modification. Patient was informed that a healthy lifestyle with exercise and good eating habits can help reduce his risk of medical complications. He is explained that obesity increases his risk of diabetes, cardiovascular disease, or organ damage. We spent a lot of time discussing the relationship between food, exercise, sleep, mental health and obesity. Patient was counseled on the importance EATING local, organic food when possible. Patient was educated on clean 15 and dirty dozen. I provided information about reading books called The Food Rules by Feliciano Chopra and Eat Fat Get Lean by Dr Jason Ellison. Self education is important in the journey for weight management. Patient was offered diagnostic testing. We want to measure visceral adiposity, advanced body composition, adverse lipids, fatty acid balance, risk for heart disease and atherosclerosis, markers of inflammation and genetic susceptibility. Patient was counseled on weight management and was advised to lose weight using B. Lifestyle management which includes several strategies as below 1. Eat a low carbohydrate good fat good protein diet. Eliminate refined carbohydrates from the diet. Continue blood sugar and sugared beverages. Eat local organic when possible. Cook your own meals. Read food labels. None about healthy snacks. Portion control and food with low glycemic index 2. Exercise regularly. Try to get at least 6000 steps a day. Use a predominant to track activity level. Consider using apps like 99Bill, myTavernpal, lose it, stick as needed for self-monitoring and weight management. Consider group exercises. Consider hiring a personal clothing laundry aide. Regular exercise is crawford to sustainable health and prevents as a buffer against weight regain 3. Sleep is most important for healing. Tried to sleep at least 8 hours a night. A good quality sleep needs a sleep ritual with ideal room temperature of around 68. It might help to take a shower and have no electronics in the room and sleep in a very dark room without artificial light. Start her sleep routine and get up early in the morning and go to bed on time 4. Make a social connection. Surround yourself with positive people with positive energy. Connect with friends and family. 5. Get into the habit of meditating and mindfulness while doing everything. 6. Go outside and connect with nature. C. Prescription medications Patient was educated on the use of prescription medications for medical weight loss. This is a growing list and includes phentermine, Topamax,Qsymia, contrave, belviq and saxenda. All prescription medications could have side effects including but not limited to kidney stones, seizure disorder cardiac arrhythmias heart attack pancreatitis etc. etc.. Patient was encouraged to read the prescription insert and have coaching with their pharmacist and make an informed decision about taking medication and know that these medications are being prescribed with good intentions and we do not know how a patient would react to her medication. Sudden medications are FDA approved for weight loss and there is also off label use depending on patient's inability to afford medications in an attempt to lose weight D. Behavioral counseling was done to establish a relationship between food and an mood. Patient was provided information about local counseling and psychiatry and Dr Maloney at [employer] [facility]. We would like to cover regular topics and build on low glycemic eating exercise mindful eating, using yoga and meditation along with deep breathing and connecting with friends and family. E. MASS PAT reviewed, Patient's current medications were reviewed and opinion was given on medication that can cause weight gain and can be substituted F. Patient was assessed for risk with obesity including and not limiting to atherosclerosis heart disease stroke kidney disease, restrictive lung disease, irritable bowel syndrome and overall mortality. Risk of developing prediabetes diabetes and metabolic syndrome was discussed G. Therapeutic plan: We have decided to make therapeutic plan which would include choosing wisely on calories restricting portion getting active, tracking weight, getting good quality sleep and working on time management H. Patient will follow up in (4) weeks for weight management Total time spent today was 60 minutes of which greater than 50% was spent on coordinating and counseling Case discussed with collaborating physician Trupti Whitt who reviewed the assessment and plan. Chart, medications, labs, vital signs reviewed. Dictation was accomplished with the use of Allocade voice recognition software, prone to medical misidentifications and grammatical errors. This is unintentional and the practitioner does try to identify and correct these, but some could still be present. Please do not hesitate to contact practitioner for clarification. All questions answered to patients satisfaction. Patient verbalized understanding of diagnosis and treatments explained. To call sooner prior to next visit it any questions/concerns arise. 05/20/2025 Anxiety (ICD-10 - F41.9) #Obesity. 194.1 pounds, BMI 34.4. New patient welcome to the practice today. Seca scale results reviewed in detail with patient. Discussed medical weight loss options in detail. Given her anxiety she is not a great candidate for phentermine. She is already on Wellbutrin therefore Contrave is not an option. Is interested in Zepbound. Reviewed risk benefits adverse effects of medication in detail with patient. There is a family history of thyroid cancer in her father. I have asked her to get further information into this specific type prior to prescribing. Discussed risk associated with family history of medullary thyroid cancer. Once we have confirmation we will send prescription for Zepbound 2.5 mg however we will start the process for PA at this time. Importance of lifestyle modifications including higher protein diet with a goal of 80 to 100 g a day. Also discussed the importance of consistent exercise including resistance training. Encouraged to add probiotic daily. Will also start GÓMEZ injections monthly. Will plan to get comprehensive labs and review at follow-up visit in 1 month. #Anxiety/depression. Controlled on current regimen. Weight Consult Plan: Patient has been found to be obese with a BMI of 34.4. Patient has class 1 obesity. Patient was reassured and welcomed to the practice. We discussed that we stress a hollistic medical approach with emphasis on lifestyle modification. Patient was informed that a healthy lifestyle with exercise and good eating habits can help reduce his risk of medical complications. He is explained that obesity increases his risk of diabetes, cardiovascular disease, or organ damage. We spent a lot of time discussing the relationship between food, exercise, sleep, mental health and obesity. Patient was counseled on the importance EATING local, organic food when possible. Patient was educated on clean 15 and dirty dozen. I provided information about reading books called The Food Rules by Feliciano Chopra and Eat Fat Get Lean by Dr Jason Ellison. Self education is important in the journey for weight management. Patient was offered diagnostic testing. We want to measure visceral adiposity, advanced body composition, adverse lipids, fatty acid balance, risk for heart disease and atherosclerosis, markers of inflammation and genetic susceptibility. Patient was counseled on weight management and was advised to lose weight using B. Lifestyle management which includes several strategies as below 1. Eat a low carbohydrate good fat good protein diet. Eliminate refined carbohydrates from the diet. Continue blood sugar and sugared beverages. Eat local organic when possible. Cook your own meals. Read food labels. None about healthy snacks. Portion control and food with low glycemic index 2. Exercise regularly. Try to get at least 6000 steps a day. Use a predominant to track activity level. Consider using apps like 99Bill, SendMeHome.compal, lose it, stick as needed for self-monitoring and weight management. Consider group exercises. Consider hiring a personal clothing laundry aide. Regular exercise is crawford to sustainable health and prevents as a buffer against weight regain 3. Sleep is most important for healing. Tried to sleep at least 8 hours a night. A good quality sleep needs a sleep ritual with ideal room temperature of around 68. It might help to take a shower and have no electronics in the room and sleep in a very dark room without artificial light. Start her sleep routine and get up early in the morning and go to bed on time 4. Make a social connection. Surround yourself with positive people with positive energy. Connect with friends and family. 5. Get into the habit of meditating and mindfulness while doing everything. 6. Go outside and connect with nature. C. Prescription medications Patient was educated on the use of prescription medications for medical weight loss. This is a growing list and includes phentermine, Topamax,Qsymia, contrave, belviq and saxenda. All prescription medications could have side effects including but not limited to kidney stones, seizure disorder cardiac arrhythmias heart attack pancreatitis etc. etc.. Patient was encouraged to read the prescription insert and have coaching with their pharmacist and make an informed decision about taking medication and know that these medications are being prescribed with good intentions and we do not know how a patient would react to her medication. Sudden medications are FDA approved for weight loss and there is also off label use depending on patient's inability to afford medications in an attempt to lose weight D. Behavioral counseling was done to establish a relationship between food and an mood. Patient was provided information about local counseling and psychiatry and Dr Maloney at [employer]. We would like to cover regular topics and build on low glycemic eating exercise mindful eating, using yoga and meditation along with deep breathing and connecting with friends and family. E. MASS PAT reviewed, Patient's current medications were reviewed and opinion was given on medication that can cause weight gain and can be substituted F. Patient was assessed for risk with obesity including and not limiting to atherosclerosis heart disease stroke kidney disease, restrictive lung disease, irritable bowel syndrome and overall mortality. Risk of developing prediabetes diabetes and metabolic syndrome was discussed G. Therapeutic plan: We have decided to make therapeutic plan which would include choosing wisely on calories restricting portion getting active, tracking weight, getting good quality sleep and working on time management H. Patient will follow up in (4) weeks for weight management Total time spent today was 60 minutes of which greater than 50% was spent on coordinating and counseling Case discussed with collaborating physician Trupti Whitt who reviewed the assessment and plan. Chart, medications, labs, vital signs reviewed. Dictation was accomplished with the use of Allocade voice recognition software, prone to medical misidentifications and grammatical errors. This is unintentional and the practitioner does try to identify and correct these, but some could still be present. Please do not hesitate to contact practitioner for clarification. All questions answered to patients satisfaction. Patient verbalized understanding of diagnosis and treatments explained. To call sooner prior to next visit it any questions/concerns arise. 05/20/2025 Depression (ICD-10 - F32.A) #Obesity. 194.1 pounds, BMI 34.4. New patient welcome to the practice today. Seca scale results reviewed in detail with patient. Discussed medical weight loss options in detail. Given her anxiety she is not a great candidate for phentermine. She is already on Wellbutrin therefore Contrave is not an option. Is interested in Zepbound. Reviewed risk benefits adverse effects of medication in detail with patient. There is a family history of thyroid cancer in her father. I have asked her to get further information into this specific type prior to prescribing. Discussed risk associated with family history of medullary thyroid cancer. Once we have confirmation we will send prescription for Zepbound 2.5 mg however we will start the process for PA at this time. Importance of lifestyle modifications including higher protein diet with a goal of 80 to 100 g a day. Also discussed the importance of consistent exercise including resistance training. Encouraged to add probiotic daily. Will also start GÓMEZ injections monthly. Will plan to get comprehensive labs and review at follow-up visit in 1 month. #Anxiety/depression. Controlled on current regimen. Weight Consult Plan: Patient has been found to be obese with a BMI of 34.4. Patient has class 1 obesity. Patient was reassured and welcomed to the practice. We discussed that we stress a hollistic medical approach with emphasis on lifestyle modification. Patient was informed that a healthy lifestyle with exercise and good eating habits can help reduce his risk of medical complications. He is explained that obesity increases his risk of diabetes, cardiovascular disease, or organ damage. We spent a lot of time discussing the relationship between food, exercise, sleep, mental health and obesity. Patient was counseled on the importance EATING local, organic food when possible. Patient was educated on clean 15 and dirty dozen. I provided information about reading books called The Food Rules by Feliciano Chopra and Eat Fat Get Lean by Dr Jason Ellison. Self education is important in the journey for weight management. Patient was offered diagnostic testing. We want to measure visceral adiposity, advanced body composition, adverse lipids, fatty acid balance, risk for heart disease and atherosclerosis, markers of inflammation and genetic susceptibility. Patient was counseled on weight management and was advised to lose weight using B. Lifestyle management which includes several strategies as below 1. Eat a low carbohydrate good fat good protein diet. Eliminate refined carbohydrates from the diet. Continue blood sugar and sugared beverages. Eat local organic when possible. Cook your own meals. Read food labels. None about healthy snacks. Portion control and food with low glycemic index 2. Exercise regularly. Try to get at least 6000 steps a day. Use a predominant to track activity level. Consider using apps like 99Bill, myTavernpal, lose it, stick as needed for self-monitoring and weight management. Consider group exercises. Consider hiring a personal clothing laundry aide. Regular exercise is crawford to sustainable health and prevents as a buffer against weight regain 3. Sleep is most important for healing. Tried to sleep at least 8 hours a night. A good quality sleep needs a sleep ritual with ideal room temperature of around 68. It might help to take a shower and have no electronics in the room and sleep in a very dark room without artificial light. Start her sleep routine and get up early in the morning and go to bed on time 4. Make a social connection. Surround yourself with positive people with positive energy. Connect with friends and family. 5. Get into the habit of meditating and mindfulness while doing everything. 6. Go outside and connect with nature. C. Prescription medications Patient was educated on the use of prescription medications for medical weight loss. This is a growing list and includes phentermine, Topamax,Qsymia, contrave, belviq and saxenda. All prescription medications could have side effects including but not limited to kidney stones, seizure disorder cardiac arrhythmias heart attack pancreatitis etc. etc.. Patient was encouraged to read the prescription insert and have coaching with their pharmacist and make an informed decision about taking medication and know that these medications are being prescribed with good intentions and we do not know how a patient would react to her medication. Sudden medications are FDA approved for weight loss and there is also off label use depending on patient's inability to afford medications in an attempt to lose weight D. Behavioral counseling was done to establish a relationship between food and an mood. Patient was provided information about local counseling and psychiatry and Dr Maloney at [facility]. We would like to cover regular topics and build on low glycemic eating exercise mindful eating, using yoga and meditation along with deep breathing and connecting with friends and family. E. MASS PAT reviewed, Patient's current medications were reviewed and opinion was given on medication that can cause weight gain and can be substituted F. Patient was assessed for risk with obesity including and not limiting to atherosclerosis heart disease stroke kidney disease, restrictive lung disease, irritable bowel syndrome and overall mortality. Risk of developing prediabetes diabetes and metabolic syndrome was discussed G. Therapeutic plan: We have decided to make therapeutic plan which would include choosing wisely on calories restricting portion getting active, tracking weight, getting good quality sleep and working on time management H. Patient will follow up in (4) weeks for weight management Total time spent today was 60 minutes of which greater than 50% was spent on coordinating and counseling Case discussed with collaborating physician Trupti Whitt who reviewed the assessment and plan. Chart, medications, labs, vital signs reviewed. Dictation was accomplished with the use of Allocade voice recognition software, prone to medical misidentifications and grammatical errors. This is unintentional and the practitioner does try to identify and correct these, but some could still be present. Please do not hesitate to contact practitioner for clarification. All questions answered to patients satisfaction. Patient verbalized understanding of diagnosis and treatments explained. To call sooner prior to next visit it any questions/concerns arise. 05/20/2025 Encounter for weight loss counseling (ICD-10 - Z71.3) #Obesity. 194.1 pounds, BMI 34.4. New patient welcome to the practice today. Seca scale results reviewed in detail with patient. Discussed medical weight loss options in detail. Given her anxiety she is not a great candidate for phentermine. She is already on Wellbutrin therefore Contrave is not an option. Is interested in Zepbound. Reviewed risk benefits adverse effects of medication in detail with patient. There is a family history of thyroid cancer in her father. I have asked her to get further information into this specific type prior to prescribing. Discussed risk associated with family history of medullary thyroid cancer. Once we have confirmation we will send prescription for Zepbound 2.5 mg however we will start the process for PA at this time. Importance of lifestyle modifications including higher protein diet with a goal of 80 to 100 g a day. Also discussed the importance of consistent exercise including resistance training. Encouraged to add probiotic daily. Will also start GÓMEZ injections monthly. Will plan to get comprehensive labs and review at follow-up visit in 1 month. #Anxiety/depression. Controlled on current regimen. Weight Consult Plan: Patient has been found to be obese with a BMI of 34.4. Patient has class 1 obesity. Patient was reassured and welcomed to the practice. We discussed that we stress a hollistic medical approach with emphasis on lifestyle modification. Patient was informed that a healthy lifestyle with exercise and good eating habits can help reduce his risk of medical complications. He is explained that obesity increases his risk of diabetes, cardiovascular disease, or organ damage. We spent a lot of time discussing the relationship between food, exercise, sleep, mental health and obesity. Patient was counseled on the importance EATING local, organic food when possible. Patient was educated on clean 15 and dirty dozen. I provided information about reading books called The Food Rules by Feliciano Chopra and Eat Fat Get Lean by Dr Jason Ellison. Self education is important in the journey for weight management. Patient was offered diagnostic testing. We want to measure visceral adiposity, advanced body composition, adverse lipids, fatty acid balance, risk for heart disease and atherosclerosis, markers of inflammation and genetic susceptibility. Patient was counseled on weight management and was advised to lose weight using B. Lifestyle management which includes several strategies as below 1. Eat a low carbohydrate good fat good protein diet. Eliminate refined carbohydrates from the diet. Continue blood sugar and sugared beverages. Eat local organic when possible. Cook your own meals. Read food labels. None about healthy snacks. Portion control and food with low glycemic index 2. Exercise regularly. Try to get at least 6000 steps a day. Use a predominant to track activity level. Consider using apps like 99Bill, SendMeHome.compal, lose it, stick as needed for self-monitoring and weight management. Consider group exercises. Consider hiring a personal clothing laundry aide. Regular exercise is crawford to sustainable health and prevents as a buffer against weight regain 3. Sleep is most important for healing. Tried to sleep at least 8 hours a night. A good quality sleep needs a sleep ritual with ideal room temperature of around 68. It might help to take a shower and have no electronics in the room and sleep in a very dark room without artificial light. Start her sleep routine and get up early in the morning and go to bed on time 4. Make a social connection. Surround yourself with positive people with positive energy. Connect with friends and family. 5. Get into the habit of meditating and mindfulness while doing everything. 6. Go outside and connect with nature. C. Prescription medications Patient was educated on the use of prescription medications for medical weight loss. This is a growing list and includes phentermine, Topamax,Qsymia, contrave, belviq and saxenda. All prescription medications could have side effects including but not limited to kidney stones, seizure disorder cardiac arrhythmias heart attack pancreatitis etc. etc.. Patient was encouraged to read the prescription insert and have coaching with their pharmacist and make an informed decision about taking medication and know that these medications are being prescribed with good intentions and we do not know how a patient would react to her medication. Sudden medications are FDA approved for weight loss and there is also off label use depending on patient's inability to afford medications in an attempt to lose weight D. Behavioral counseling was done to establish a relationship between food and an mood. Patient was provided information about local counseling and psychiatry and Dr Maloney at [facility]. We would like to cover regular topics and build on low glycemic eating exercise mindful eating, using yoga and meditation along with deep breathing and connecting with friends and family. E. MASS PAT reviewed, Patient's current medications were reviewed and opinion was given on medication that can cause weight gain and can be substituted F. Patient was assessed for risk with obesity including and not limiting to atherosclerosis heart disease stroke kidney disease, restrictive lung disease, irritable bowel syndrome and overall mortality. Risk of developing prediabetes diabetes and metabolic syndrome was discussed G. Therapeutic plan: We have decided to make therapeutic plan which would include choosing wisely on calories restricting portion getting active, tracking weight, getting good quality sleep and working on time management H. Patient will follow up in (4) weeks for weight management Total time spent today was 60 minutes of which greater than 50% was spent on coordinating and counseling Case discussed with collaborating physician Trupti Whitt who reviewed the assessment and plan. Chart, medications, labs, vital signs reviewed. Dictation was accomplished with the use of Allocade voice recognition software, prone to medical misidentifications and grammatical errors. This is unintentional and the practitioner does try to identify and correct these, but some could still be present. Please do not hesitate to contact practitioner for clarification. All questions answered to patients satisfaction. Patient verbalized understanding of diagnosis and treatments explained. To call sooner prior to next visit it any questions/concerns arise. 05/20/2025 Encounter for examination of blood pressure without abnormal findings (ICD-10 - Z01.30) #Obesity. 194.1 pounds, BMI 34.4. New patient welcome to the practice today. Seca scale results reviewed in detail with patient. Discussed medical weight loss options in detail. Given her anxiety she is not a great candidate for phentermine. She is already on Wellbutrin therefore Contrave is not an option. Is interested in Zepbound. Reviewed risk benefits adverse effects of medication in detail with patient. There is a family history of thyroid cancer in her father. I have asked her to get further information into this specific type prior to prescribing. Discussed risk associated with family history of medullary thyroid cancer. Once we have confirmation we will send prescription for Zepbound 2.5 mg however we will start the process for PA at this time. Importance of lifestyle modifications including higher protein diet with a goal of 80 to 100 g a day. Also discussed the importance of consistent exercise including resistance training. Encouraged to add probiotic daily. Will also start GÓMEZ injections monthly. Will plan to get comprehensive labs and review at follow-up visit in 1 month. #Anxiety/depression. Controlled on current regimen. Weight Consult Plan: Patient has been found to be obese with a BMI of 34.4. Patient has class 1 obesity. Patient was reassured and welcomed to the practice. We discussed that we stress a hollistic medical approach with emphasis on lifestyle modification. Patient was informed that a healthy lifestyle with exercise and good eating habits can help reduce his risk of medical complications. He is explained that obesity increases his risk of diabetes, cardiovascular disease, or organ damage. We spent a lot of time discussing the relationship between food, exercise, sleep, mental health and obesity. Patient was counseled on the importance EATING local, organic food when possible. Patient was educated on clean 15 and dirty dozen. I provided information about reading books called The Food Rules by Feliciano Chopra and Eat Fat Get Lean by Dr Jason Ellison. Self education is important in the journey for weight management. Patient was offered diagnostic testing. We want to measure visceral adiposity, advanced body composition, adverse lipids, fatty acid balance, risk for heart disease and atherosclerosis, markers of inflammation and genetic susceptibility. Patient was counseled on weight management and was advised to lose weight using B. Lifestyle management which includes several strategies as below 1. Eat a low carbohydrate good fat good protein diet. Eliminate refined carbohydrates from the diet. Continue blood sugar and sugared beverages. Eat local organic when possible. Cook your own meals. Read food labels. None about healthy snacks. Portion control and food with low glycemic index 2. Exercise regularly. Try to get at least 6000 steps a day. Use a predominant to track activity level. Consider using apps like 99Bill, myMessageGatenesspal, lose it, stick as needed for self-monitoring and weight management. Consider group exercises. Consider hiring a personal clothing laundry aide. Regular exercise is crawford to sustainable health and prevents as a buffer against weight regain 3. Sleep is most important for healing. Tried to sleep at least 8 hours a night. A good quality sleep needs a sleep ritual with ideal room temperature of around 68. It might help to take a shower and have no electronics in the room and sleep in a very dark room without artificial light. Start her sleep routine and get up early in the morning and go to bed on time 4. Make a social connection. Surround yourself with positive people with positive energy. Connect with friends and family. 5. Get into the habit of meditating and mindfulness while doing everything. 6. Go outside and connect with nature. C. Prescription medications Patient was educated on the use of prescription medications for medical weight loss. This is a growing list and includes phentermine, Topamax,Qsymia, contrave, belviq and saxenda. All prescription medications could have side effects including but not limited to kidney stones, seizure disorder cardiac arrhythmias heart attack pancreatitis etc. etc.. Patient was encouraged to read the prescription insert and have coaching with their pharmacist and make an informed decision about taking medication and know that these medications are being prescribed with good intentions and we do not know how a patient would react to her medication. Sudden medications are FDA approved for weight loss and there is also off label use depending on patient's inability to afford medications in an attempt to lose weight D. Behavioral counseling was done to establish a relationship between food and an mood. Patient was provided information about local counseling and psychiatry and Dr Maloney at [facility]. We would like to cover regular topics and build on low glycemic eating exercise mindful eating, using yoga and meditation along with deep breathing and connecting with friends and family. E. MASS PAT reviewed, Patient's current medications were reviewed and opinion was given on medication that can cause weight gain and can be substituted F. Patient was assessed for risk with obesity including and not limiting to atherosclerosis heart disease stroke kidney disease, restrictive lung disease, irritable bowel syndrome and overall mortality. Risk of developing prediabetes diabetes and metabolic syndrome was discussed G. Therapeutic plan: We have decided to make therapeutic plan which would include choosing wisely on calories restricting portion getting active, tracking weight, getting good quality sleep and working on time management H. Patient will follow up in (4) weeks for weight management Total time spent today was 60 minutes of which greater than 50% was spent on coordinating and counseling Case discussed with collaborating physician Trupti Whitt who reviewed the assessment and plan. Chart, medications, labs, vital signs reviewed. Dictation was accomplished with the use of Allocade voice recognition software, prone to medical misidentifications and grammatical errors. This is unintentional and the practitioner does try to identify and correct these, but some could still be present. Please do not hesitate to contact practitioner for clarification. All questions answered to patients satisfaction. Patient verbalized understanding of diagnosis and treatments explained. To call sooner prior to next visit it any questions/concerns arise. Plan Of Treatment Pending Test Test Name Order Date LIPID PANEL 05/20/2025 TSH 05/20/2025 INSULIN LEVEL 05/20/2025 COMPREHENSIVE METABOLIC PANEL 05/20/2025 CBC (INCLUDES DIFF/PLT) 05/20/2025 HEMOGLOBIN A1c 05/20/2025 VITAMIN D,25-OH,TOTAL,IA 05/20/2025 Next Appt Details Provider Name:Peace Santiago, 0 06/23/2025 09:00:00 AM, [address] [facility], [facility] [address], [place], [address], Insurance Providers Payer Name Payer Address Payer Phone Subscriber Number Group Number Insured Name Patient Relationship to Insured Coverage Start Date Coverage End Date [employer] [address] [place] [id number] Joie Hurd Self - patient is the insured Medications Administered Medication Instructions Date of Administration Dosage Notes MICC B12 INJECTION 05/20/2025 1 mL Medical (General) History Medical History History ICD Code asthma anxiety depression Surgical History Surgery Date(Month/Year) breast lump excision
--- OUTSIDE RECORDS SUMMARY | 2025-06-02 15:20 | XMS_ITS | Clinical Summary ---
Author Organization [facility] Address [address] [place] [id number] Phone Care Team Providers Care Women[employer]S Ministry Director Name Role Phone Pcp, Unknown Primary Care Provider Unavailabl e Allergies No known active allergies Medications phenazopyridine (PYRIDIUM) 200 MG tablet Take 1 tablet (200 mg total) by mouth 3 (three) times a day as needed for pain (specific location in comments). 10 tablet 5 Active Additional Information Patient not taking.Reported on 03/31/2025 methocarbamoL (ROBAXIN) 500 MG tablet Take 500 mg by mouth 3 (three) times a day. 5 Active naproxen (NAPROSYN) 500 MG tablet Take 500 mg by mouth 2 (two) times a day with meals. 5 Active predniSONE (DELTASONE) 20 MG tablet Take 2 tablets by mouth every morning. 5 Active cyclobenzaprine (FLEXERIL) 5 MG tablet Take 5 mg by mouth every 8 (eight) hours as needed. 5 Active Encounters Date Type Department Care Team Description 03/31/2025 9:28 AM EDT - 03/31/2025 3:40 PM EDT Emergency [facility] [address] [place] [address] Dominic Perez MD Andrade, Olyn Amanda, MD Discharge Disposition: Home or Self Care from Last 3 Months Social History Tobacco Use Types Packs/Day Years Used Date Smoking Tobacco: Never Smokeless Tobacco: Never Tobacco Cessation:Counseling Given: Not Answered Alcohol Use Standard Drinks/Week Comments Not Currently 0 (1 standard drink = 0.6 oz pur e alcohol) Education Answer Date Recorded Are you interested in more education? Not on marie e 11/29/2023 Are you concerned about learning? Not on file 11/29/2023 No 11/29/2023 No 11/29/2023 Food Answer Date Recorded Within the past 6 months we worried whether our food would run out before we got money to buy more. Never True 03/31/2025 Within the past 6 months the food we bought just didn't last and we didn't have enough money to get more. Never True Residential Stability Answer Date Recor ded What is your housing situation today? I have larry sing 03/31/2025 How many times have you move d in the past 12 months? Zero (I did not move) 03/31/2025 Paying for Meds Answer Date Recorded Do you have trouble paying for medicines? No 03/31/2025 Paying Utility Bills Answer Date Record ed Do you have trouble paying your heating or elect ricity bill? No 03/31/2025 Transportation Answer Date Recorded Has the lack of transportati on kept you from medical appointments or from getting medications? No 03/31/2025 Digital Access Answer Date Recorded No 03/31/2025 Yes 03/31/2025 Do you have reliable internet access at home? Ye s 03/31/2025 Do you have a device (e.g., phone, tablet, computer) with a working camera? Yes 03/31/2025 Intimate Partner Violence Answer Date R ecorded Are you denied basic needs s uch as food, clothing, or medical care? No 03/31/2025 In the past 12 months have y ou been in a relationship with a person who hurts, threatens, or tries to control you? No 03/31/2025 Are you denied basic needs s uch as food, clothing, or medical care? No 03/31/2025 In the past 12 months have y ou been in a relationship with a person who hurts, threatens, or tries to control you? No 03/31/2025 Comments Unknown Sex and Gender Information Value Date Recorded Sex Assigned at Female 01/09/2025 7:48 PM EDT Legal Sex Female 9:02 PM EDT Gender Identity Female 01/09/2025 7:48 PM EDT Sexual Orientation Not on file Last Filed Vital Signs Vital Sign Reading Time Taken Comments Blood Pressure 134/73 03/31/2025 3:15 PM EDT Pulse 89 03/31/2025 1:57 PM EDT Temperature 36.8 C (98.2 F) 03/31/2025 3:15 PM EDT Respiratory Rate 18 03/31/2025 3:15 PM EDT Oxygen Saturation 100% 03/31/2025 3:15 PM EDT Inhaled Oxygen Concentration - - Weight 84.8 kg (187 lb) 03/31/2025 9:21 AM EDT Height 157.5 cm (5' 2 ) 03/31/2025 9:21 AM EDT Body Mass Index 34.2 03/31/2025 9:21 AM EDT Plan of Treatment Upcoming Encounters Date Type Department Care Team (Late st Contact Info) Description 06/28/2025 8:00 AM EDT Office Visit [facility] [address] [place] [address] Neris Kong MD [address] [facility] [address] [place] [address] [email or web address] Due Date Last Done Comments Adult Td,Tdap Booster 1991 DEPRESSION SCREENING 2003 HEPATITIS C SCREENING 2009 HIV ONE-TIME SCREENING (18-6 5 YEARS) 2009 PAP SMEAR 02/25/2012 COVID-19 VACCINE (3 - 2023-2 5 season) 2024 07/19/2021, 06/28/2021 SMOKING STATUS SCREENING (On ce After 26 Yrs) Completed 01/09/2025 HEPATITIS A VACCINES Aged Out No long er eligible based on patient's age to complete this topic HIB VACCINES Aged Out No longer eligi ble based on patient's age to complete this topic MENINGOCOCCAL VACCINES (ACWY) Aged Out No longer eligible based on patient's age to complete this topic MENINGOCOCCAL VACCINES (B) Aged Out N o longer eligible based on patient's age to complete this topic PNEUMOCOCCAL VACCINES (0-49 years) Aged Out No longer eligible b ased on patient's age to complete this topic Medical Devices Not on file Procedures Procedure Name Priority Date/Time Associated Diagnosis Comments US OB LESS THAN 14 WEEKS TRANSABDOMINAL AND TRANSVAGINAL Routine 03/31/2025 11:34 AM EDT ABO2F - 2ND TYPE (NEW SAMPLE) STAT 03/31/2025 10:41 AM EDT TYPE AND SCREEN (ABO,RH,ANTIBODY SCREEN) STAT 03/31/2025 10:08 AM EDT HCG (QUANTITATIVE, BLOOD) STAT 03/31/2025 10:08 AM EDT CBC AND DIFFERENTIAL STAT 03/31/2025 10:08 AM EDT from Last 3 Months Results * US OB LESS THAN 14 WEEKS TRANSABDOMINAL AND TRANSVAGINAL (03/31/2025 11:34 AM EDT) Anatomical Region Laterality Modality Abdomen, Pelvis, Uterus/Adnexa U ltrasound 03/31/2025 12:4 6 PM EDT Impressions 03/31/2025 12:52 PM EDT See findings. Narrative 03/31/2025 12:52 PM EDT US OB LESS THAN 14 WEEKS TRANSABDOMINAL AND TRANSVAGINAL Referring clinician's provided indication for this examination in Epic: Bleeding; About 7 weeks , some spotting. Recent fall. No confirmed IUP TECHNIQUE: Pelvic Ultrasound Transabdominal performed for global imaging of the pelvis. Pelvic Ultrasound Transvaginal performed for detailed imaging of the endometrium and/or adnexa. COMPARISON: None. FINDINGS: Uterus: Normal. Endometrium: There is a single gestational sac containing a yolk sac. No pole yet seen. Small subchorionic hematoma involving about 20% of the gestational sac circumference measuring 0.9 x 0.5 cm. Gestational age is estimated at 5.5 weeks. Right adnexa: No mass. Right ovary: 2.2 cm corpus luteum. Left adnexa: No mass. Left ovary: Normal. Free fluid: None. Procedure Note Grace Frias MD - 03/31/2025 US OB LESS THAN 14 WEEKS TRANSABDOMINAL AND TRANSVAGINAL Referring clinician's provided indication for this examination in Epic:Bleeding; About 7 weeks , some spotting. Recent fall. No confirmedIUP TECHNIQUE: Pelvic Ultrasound Transabdominal performed for global imagingof the pelvis. Pelvic Ultrasound Transvaginal performed for detailedimaging of the endometrium and/or adnexa. COMPARISON: None. FINDINGS: Uterus: Normal. Endometrium: There is a single gestational sac containing a yolk sac. Nofetal pole yet seen. Small subchorionic hematoma involving about 20% of the gestational saccircumference measuring 0.9 x 0.5 cm. Gestational age is estimated at 5.5 weeks. Right adnexa: No mass. Right ovary: 2.2 cm corpus luteum. Left adnexa: No mass. Left ovary: Normal. Free fluid: None. IMPRESSION: See findings. Dominic Perez MD [facility] US OBSTETRIC Final Resu lt * 2nd Type (New Sample) (03/31/2025 10:41 AM EDT) ABO/Rh O Positive [facility] Resulting Agency [facility] 03/31/2025 10:4 1 AM EDT 03/31/2025 10:44 AM EDT Dominic Perez MD BLOOD BANK TEST ORDERABLES Final Result [facility] [address] [place] [address] * CBC and differential (03/31/2025 10:08 AM EDT) WBC 7.25 4.00 - 11.00 K/uL [facility] RBC 4.37 4.00 - 5.20 M/uL [facility] HGB 13.3 12.0 - 16.0 g/dL [facility] HCT 40.0 36.0 - 46.0 % [facility] PLT 343 150 - 450 K/uL [facility] MCV 91.5 80.0 - 100.0 fL [facility] MCH 30.4 27.0 - 31.0 pg [facility] MCHC 33.3 32.0 - 36.0 g/dL [facility] RDW 13.1 11.5 - 14.5 % [facility] MPV 9.9 8.4 - 12.0 fL [facility] NRBC 0.00 0.00 /100 WBCs [facility] ABSOLUTE NRBC 0.00 0.00 K/uL [facility] DIFF METHOD Auto [facility] NEUTS 63.5 48.0 - 76.0 % [facility] LYMPHS 27.4 18.0 - 41.0 % [facility] MONOS 6.8 4.0 - 11.0 % [facility] EOS 1.5 0.0 - 5.0 % [facility] BASOS 0.4 0.0 - 1.5 % [facility] Granulocytes, immature (%) 0.4 0.0 - 0.9 % [facility] ABSOLUTE NEUTS 4.60 1.92 - 7.60 K/uL [facility] ABSOLUTE LYMPHS 1.99 0.72 - 4.10 K/uL [facility] ABSOLUTE MONOS 0.49 0.16 - 1.10 K/uL [facility] ABSOLUTE EOS 0.11 0.00 - 0.50 K/uL [facility] ABSOLUTE BASOS 0.03 0.00 - 0.15 K/uL [facility] Granulocytes, immature 0.03 0.00 - 0.09 K/uL [facility] Blood 03/31/2025 10:0 8 AM EDT 03/31/2025 10:16 AM EDT us Dominic Perez MD LAB BLOOD ORDERABLES Final Result [facility] [address] [place] [address] * Type and Screen (ABO,Rh,Antibody Screen) (03/31/2025 10:08 AM EDT) ABO/Rh O Positive [facility] Antibody Screen Negative [facility] Expiration Date of Sample 04/03/2025,2 359 [facility] Resulting Agency [facility] Blood 03/31/2025 10:0 8 AM EDT 03/31/2025 10:16 AM EDT Dominic Perez MD BLOOD BANK TEST ORDERABLES Final Result Performing Organization Address [facility] Co de Phone Number [address] [phone] * HCG (Quantitative, Blood) (03/31/2025 10:08 AM EDT) HCG BETA 7,557.0 mIU/mL [facility] Comment: Interpretation: FEMALE: Negative: Less than or equal to 1 mIU/mL. 4 Weeks Post Conception: 9.5 - 750 mIU/mL. 12 Weeks Post Conception: [id number] - [id number] mIU/mL. Test Methodology Asher [id number] Patient results determined by assays using different manufacturers or methods may not be comparable. Blood 03/31/2025 10:0 8 AM EDT 03/31/2025 10:16 AM EDT Dominic Perez MD LAB BLOOD ORDERABLES Final Result Performing Organization Address [facility] Co de Phone Number [address] [phone] from Last 3 Months Insurance [employer] [facility] [place] [address] [place] [address] [employer] [place] [address] [place] [address] [address] [place] [address] [facility] [place] [address] [facility] [place] [facility] [place] [place] Care Teams Women[employer]S Ministry Director Relationship Specialty Start Date End Date Pcp, Unknown PCP - General 11/29/23 Additional Source Comments The information contained in this document represents components of the legal health record. It is not the complete legal health record.[facility]
== END 2025-06-02 15:48 | disposition home or self-care (01) ==
PROVIDERS: Visit Provider Physician Assistant Medical
DX: H92.01 Otalgia, right ear (principal)